=== PATIENT | female | born 1955 | race Caucasian/White ===

== ENCOUNTER 2019-04-05 12:49 | Inpatient (IN) | payer MEDICARE, MEDICAID ==
[~2019-04-05] VITALS: Ht 157.5 cm; Wt 90.7 kg
[2019-04-05 13:21] LABS: BASOPHILS % (AUTO) 0 % (0-1); EOSINOPHILS % (AUTO) 0 % (0-6); HEMATOCRIT 40.2 % (35.0-45.0); HEMOGLOBIN 13.6 g/dl (12.0-16.0); LYMPHOCYTES # (AUTO) 0.5 X10'3 (1.1-4.8); LYMPHOCYTES % (AUTO) 1.9 % (21-51); MEAN CORPUSCULAR HEMOGLOBIN 29.6 PG (27.0-31.0); MEAN CORPUSCULAR HGB CONC 33.9 g/dL (33.0-36.5); MEAN CORPUSCULAR VOLUME 87.2 FL (78-98); MEAN PLATELET VOLUME 7.9 FL (7.4-10.4); MONOCYTES # (AUTO) 0.5 X10'3 (0-0.9); MONOCYTES % (AUTO) 2.2 % (2-12); NEUTROPHILS # (AUTO) 24.1 X10'3 (1.8-7.7); NEUTROPHILS % (AUTO) 95.9 % (42-75); PLATELET COUNT 297 X10'3 (140-440); RED CELL DISTRIBUTION WIDTH 14.3 % (11.5-14.5)
[2019-04-05 13:29] LABS: WHITE BLOOD COUNT 25.1 X10'3 (4.5-11.0)
[2019-04-05 13:37] LABS: ALANINE AMINOTRANSFERASE 28 U/L (12-78); ALBUMIN 3.1 G/DL (3.4-5.0); ALBUMIN/GLOBULIN RATIO 0.7 (1.1-1.5); ALKALINE PHOSPHATASE 99 IU/L (46-116); ANION GAP 9 (8-16); ASPARTATE AMINO TRANSFERASE 38 U/L (10-37); BILIRUBIN,TOTAL 0.9 MG/DL (0.1-1.0); BLOOD UREA NITROGEN 22 MG/DL (7-18); BUN/CREATININE RATIO 17.2 (6.6-38.0); CALCIUM 8.3 MG/DL (8.5-10.1); CHLORIDE 96 MMOL/L (99-107); CREATININE 1.28 MG/DL (0.40-0.90); GLUCOSE 92 MG/DL (70-104); POTASSIUM 3.4 MMOL/L (3.5-5.1); SODIUM 132 MMOL/L (135-145); TOTAL PROTEIN 7.7 G/DL (6.4-8.2); eGFR 42 ML/MIN
[2019-04-05] MEDS ORDERED: vancomycin/NS 1 GM ADD-VANTAGE 250 ML IV ONE (13:45)
[2019-04-05] MEDS ORDERED: piperacillin/tazo 3.375gm/50ml 50 ML IV ONE (13:45)
[2019-04-05 13:49] LABS: TOTAL CELLS COUNTED 100
[2019-04-05 13:50] LABS: ANISOCYTOSIS 1+; PLATELET ESTIMATE NORMAL
[2019-04-05] MEDS: normal saline 1000ml 1,000 ML IV SCH (15:41)
[2019-04-05] MEDS ORDERED: ondansetron/PF 4mg/2ml inj IV PRN (15:45)
[2019-04-05] MEDS ORDERED: mag hydrox/Alum hydrox/simeth 30ml oral suspension PO PRN (15:45)
[2019-04-05] MEDS ORDERED: magnesium hydroxide 30ml (MOM) UD suspension PO PRN (15:45)
[2019-04-05] MEDS ORDERED: morphine 2 MG/ML inj. syringe IV PRN (15:45)
[2019-04-05] MEDS ORDERED: acetaminophen 325mg tablet PO PRN (15:45)
--- NOTE | 2019-04-05 17:30 | NUR ---
Patient in room PCU 3015. I have received report from ER Nurse and had the opportunity to ask questions and assume patient care. Patient transferred to room, IV fluids set up per order with NS running at 100ml/hr, MRSA swab collected, telemetry set up, Wick in place, vital signs stable, no acute distress, will continue to monitor.
--- NOTE | 2019-04-05 18:34 | NUR ---
Problems reprioritized. Patient report given, questions answered & plan of care reviewed with Catia DHALIWAL. Patient stable at transfer of care.
[2019-04-05 19:00] VITALS: BP 152/40
[2019-04-05] MEDS ORDERED: nicotine 7mg patch - 24hr TD SCH (20:00)
[2019-04-05] MEDS: heparin, porcine 5000 units/ml vial SQ SCH (21:10)
[2019-04-05] MEDS: lactobacillus rhamnosus 10,000 MMU CELLS/CAPSULE PO SCH (21:10)
[2019-04-05] MEDS: nicotine 14mg patch - 24hr TD SCH (21:11)
[2019-04-05 23:00] VITALS: BP 130/67
[2019-04-06] MEDS: piperacillin/tazo 3.375gm/50ml 50 ML IV SCH ×4 (00:52→23:30)
[2019-04-06 03:00] VITALS: BP 120/54
[2019-04-06 05:51] LABS: BASOPHILS % (AUTO) 0.1 % (0-1); EOSINOPHILS % (AUTO) 0.1 % (0-6); HEMATOCRIT 35.9 % (35.0-45.0); HEMOGLOBIN 12.1 g/dl (12.0-16.0); LYMPHOCYTES # (AUTO) 0.7 X10'3 (1.1-4.8); LYMPHOCYTES % (AUTO) 3.1 % (21-51); MEAN CORPUSCULAR HGB CONC 33.8 g/dL (33.0-36.5); MEAN CORPUSCULAR VOLUME 85.7 FL (78-98); MEAN PLATELET VOLUME 8.4 FL (7.4-10.4); MONOCYTES # (AUTO) 0.6 X10'3 (0-0.9); MONOCYTES % (AUTO) 2.8 % (2-12); NEUTROPHILS # (AUTO) 20.6 X10'3 (1.8-7.7); NEUTROPHILS % (AUTO) 93.9 % (42-75); PLATELET COUNT 239 X10'3 (140-440); RED BLOOD COUNT 4.19 X10'6 (4.20-5.60); RED CELL DISTRIBUTION WIDTH 14.2 % (11.5-14.5)
[2019-04-06 06:00] VITALS: BP 109/61
[2019-04-06 06:22] LABS: ALBUMIN 2.5 G/DL (3.4-5.0); ANION GAP 11 (8-16); BLOOD UREA NITROGEN 16 MG/DL (7-18); BUN/CREATININE RATIO 16.2 (6.6-38.0); CHLORIDE 99 MMOL/L (99-107); CREATININE 0.99 MG/DL (0.40-0.90); GLUCOSE 92 MG/DL (70-104); POTASSIUM 3.1 MMOL/L (3.5-5.1); SODIUM 134 MMOL/L (135-145); TOTAL CARBON DIOXIDE 23.7 MMOL/L (24-32); eGFR 57 ML/MIN
--- NOTE | 2019-04-06 06:30 | NUR ---
Patient in room PCU 3015. I have received report from MADHURI DIAZ and had the opportunity to ask questions and assume patient care.
[2019-04-06 07:01] LABS: TOTAL CELLS COUNTED 100
[2019-04-06 07:02] LABS: PLATELET ESTIMATE NORMAL
[2019-04-06] MEDS: normal saline 1000ml 1,000 ML IV SCH ×2 (07:22→12:42)
[2019-04-06] MEDS: lactobacillus rhamnosus 10,000 MMU CELLS/CAPSULE PO SCH ×2 (07:37→20:27)
[2019-04-06] MEDS: heparin, porcine 5000 units/ml vial SQ SCH ×2 (07:38→20:27)
[2019-04-06] MEDS: nicotine 14mg patch - 24hr TD SCH (07:38)
--- NOTE | 2019-04-06 09:16 | NUR ---
PAGED VASCULAR:[id number], US ORDERS SKYLER [phone]. TY
--- NOTE | 2019-04-06 09:30 | NUR ---
informed dr. shaw k+ 3.1 without replacement. stool sent for dciif, re loose stools.
--- NOTE | 2019-04-06 10:42 | NUR ---
PAGER ID: [phone] MESSAGE: , [id number]/MAYO, HARD IV START.ONE PIV STARTED BY ED MD IN. HAVE IV ZOSYN Q 8 HOURS AND VANCO IV Q 12 HOURS. CANNOT ADM ORDERED UNTIL WE GET ANOTHER LINE. WILL NEED PICC OR EXTENDED TOMORROW, SKYLER [id number]. TY
[2019-04-06 10:55] LABS: C DIFF ANTIGEN NEGATIVE (NEGATIVE); C DIFF SPECIMEN=DIARRHEA? ACCEPTABLE; C DIFFICILE TOXINS A&B NEGATIVE (Neg)
[2019-04-06 11:00] VITALS: BP 115/54
[2019-04-06] MEDS: VANCOmycin 1250MG/NS 250ml Bag 250 ML IV SCH ×2 (12:41→20:26)
[2019-04-06] MEDS ORDERED: potassium CL 10mEq/100ml bag 100 ML IV PRN (13:40)
[2019-04-06] MEDS ORDERED: potassium Cl 20 mEq SR tablet PO PRN (13:40)
[2019-04-06] MEDS: potassium Cl 20 mEq SR tablet PO PRN ×3 (13:50→23:30)
[2019-04-06] MEDS ORDERED: VANCOmycin 1250MG/NS 250ml Bag 250 ML IV SCH (14:00)
--- NOTE | 2019-04-06 14:39 | NUR ---
c-dif was negative. requested anti-diarrheal medication from Dr. Miner. no order at this time.
[2019-04-06 15:00] VITALS: BP 101/47
--- NOTE | 2019-04-06 16:44 | NUR ---
Latoya CARRASCO, PHARMACIST, REQUESTING HELP TO INPUT HOME MEDS INTO MED REC. HAD ASKED MADHURI SLAUGHTER FOR ASSIST. UNSURE HOW TO DO IT. LUNA STATES "I WILL HAVE TO FIND THE INSTRUCTIONS AND FAX THEM TO YOU"
--- NOTE | 2019-04-06 18:39 | NUR ---
Problems reprioritized. Patient report given, questions answered & plan of care reviewed with MADHURI DIAZ.
[2019-04-06 19:00] VITALS: BP 114/72
[2019-04-06 23:00] VITALS: BP 119/63
[2019-04-06] MEDS ORDERED: ATEN-169 PO (23:48)
[2019-04-06] MEDS ORDERED: CLOP75TA35 PO (23:52)
[2019-04-07] MEDS ORDERED: CELE-193 PO (00:46)
[2019-04-07] MEDS ORDERED: TOLT2TAB2 PO (00:50)
[2019-04-07] MEDS ORDERED: NORT25CA PO (00:56)
[2019-04-07] MEDS ORDERED: VENL-190 PO (00:56)
[2019-04-07] MEDS ORDERED: FURO-150 PO (00:56)
[2019-04-07] MEDS ORDERED: LISI-600 PO (00:57)
[2019-04-07 03:00] VITALS: BP 144/67
--- NOTE | 2019-04-07 06:30 | NUR ---
Patient in room PCU 3015. I have received report from MADHURI DIAZ and had the opportunity to ask questions and assume patient care.
[2019-04-07 06:54] LABS: BASOPHILS % (AUTO) 0 % (0-1); EOSINOPHILS # (AUTO) 0.6 X10'3 (0-0.9); EOSINOPHILS % (AUTO) 3.4 % (0-6); HEMATOCRIT 34.8 % (35.0-45.0); HEMOGLOBIN 11.7 g/dl (12.0-16.0); LYMPHOCYTES # (AUTO) 0.6 X10'3 (1.1-4.8); LYMPHOCYTES % (AUTO) 3.4 % (21-51); MEAN CORPUSCULAR HEMOGLOBIN 29.4 PG (27.0-31.0); MEAN CORPUSCULAR HGB CONC 33.6 g/dL (33.0-36.5); MEAN CORPUSCULAR VOLUME 87.4 FL (78-98); MEAN PLATELET VOLUME 8.5 FL (7.4-10.4); MONOCYTES # (AUTO) 0.7 X10'3 (0-0.9); MONOCYTES % (AUTO) 3.7 % (2-12); NEUTROPHILS % (AUTO) 89.5 % (42-75); PLATELET COUNT 218 X10'3 (140-440); RED BLOOD COUNT 3.98 X10'6 (4.20-5.60); RED CELL DISTRIBUTION WIDTH 14.6 % (11.5-14.5); WHITE BLOOD COUNT 17.8 X10'3 (4.5-11.0)
[2019-04-07 07:00] VITALS: BP 117/69
[2019-04-07 07:17] LABS: ALBUMIN 2.2 G/DL (3.4-5.0); ANION GAP 13 (8-16); BLOOD UREA NITROGEN 11 MG/DL (7-18); BUN/CREATININE RATIO 14.9 (6.6-38.0); CALCIUM 8.6 MG/DL (8.5-10.1); CHLORIDE 103 MMOL/L (99-107); CREATININE 0.74 MG/DL (0.40-0.90); GLUCOSE 105 MG/DL (70-104); SODIUM 135 MMOL/L (135-145); TOTAL CARBON DIOXIDE 18.9 MMOL/L (24-32); eGFR 79 ML/MIN
[2019-04-07 07:22] LABS: POTASSIUM 4.4 MMOL/L (3.5-5.1)
[2019-04-07] MEDS: normal saline 1000ml 1,000 ML IV SCH ×3 (07:33→13:50)
[2019-04-07] MEDS: nicotine 14mg patch - 24hr TD SCH (08:06)
[2019-04-07] MEDS: lactobacillus rhamnosus 10,000 MMU CELLS/CAPSULE PO SCH ×2 (08:07→19:26)
[2019-04-07] MEDS: VANCOmycin 1250MG/NS 250ml Bag 250 ML IV SCH (08:07)
[2019-04-07] MEDS: piperacillin/tazo 3.375gm/50ml 50 ML IV SCH (08:07)
[2019-04-07] MEDS: heparin, porcine 5000 units/ml vial SQ SCH ×2 (08:08→19:28)
--- NOTE | 2019-04-07 08:54 | NUR ---
PAGED PICC RN:PLEASE CALL SKYLER [phone]. TY
--- NOTE | 2019-04-07 08:56 | NUR ---
FRAN INFRASTRUCTURE MANAGER: R/T 1895E, PLEASE CALL SKYLER [id number]. TY Addendum: 04/07/19 at 0857 by Jagdeep Aponte RN WRONG PT
[2019-04-07 08:57] LABS: TOTAL CELLS COUNTED 100
[2019-04-07 08:58] LABS: PLATELET ESTIMATE NORMAL; TOXIC GRANULATION 1+; TOXIC VACUOLATION 2+
[2019-04-07 08:59] LABS: LARGE PLATELETS FEW
--- NOTE | 2019-04-07 09:35 | NUR ---
SECOND PAGE TO PICC RN:PLEASE CALL SKYLER [id number] R/R [id number]. TY
[2019-04-07 11:00] VITALS: BP 105/69
--- NOTE | 2019-04-07 13:45 | NUR ---
UP SITTING ON EDGE OF BED, PULLING GOWN OFF. PULLED OUT PIV LAC 3 16 AND RIGHT BREAST #22. HEMOSTASIS ACHIEVED. HAVE REMAINING EXTENDED PIV BAY. SITTER ASSIGNED.
[2019-04-07] MEDS: ceFAZolin 1GM/D5W- ADD-VANTAGE 50 ML IV SCH ×2 (13:50→19:37)
[2019-04-07 15:00] VITALS: BP 129/50
--- NOTE | 2019-04-07 15:15 | NUR ---
Extended PIV inserted to the right upper arm cephalic vein x 1 attempt using ultrasound. Anna well Addendum: 04/07/19 at 1515 by Chelita Rivas RN Amended: Links added.
[2019-04-07] MEDS: HYDROcodone/acetaminophen 10/325mg tab PO PRN (15:45)
--- NOTE | 2019-04-07 18:12 | NUR ---
Problems reprioritized. Patient report given, questions answered & plan of care reviewed with deanna polanco.
--- NOTE | 2019-04-07 18:39 | NUR ---
Patient in room PCU 3015. I have received report from Azar DHALIWAL and had the opportunity to ask questions and assume patient care.
[2019-04-07 19:00] VITALS: BP 140/69
[2019-04-07] MEDS ORDERED: VANCOMYCIN LEVEL IV ONE (19:30)
[2019-04-07] MEDS: nortriptyline 25mg capsule PO SCH (21:05)
[2019-04-07 23:00] VITALS: BP 136/78
[2019-04-08] VITALS (8 sets, daily range): BP systolic 87–144; BP diastolic 47–75
[2019-04-08] MEDS: ceFAZolin 1GM/D5W- ADD-VANTAGE 50 ML IV SCH ×4 (02:01→21:03)
[2019-04-08] MEDS: normal saline 1000ml 1,000 ML IV SCH ×3 (03:41→23:05)
[2019-04-08] MEDS: HYDROcodone/acetaminophen 10/325mg tab PO PRN ×2 (04:22→17:32)
[2019-04-08 04:48] LABS: BASOPHILS % (AUTO) 0 % (0-1); EOSINOPHILS # (AUTO) 0.8 X10'3 (0-0.9); EOSINOPHILS % (AUTO) 6.3 % (0-6); HEMATOCRIT 33.7 % (35.0-45.0); HEMOGLOBIN 11.4 g/dl (12.0-16.0); LYMPHOCYTES # (AUTO) 0.5 X10'3 (1.1-4.8); LYMPHOCYTES % (AUTO) 4.2 % (21-51); MEAN CORPUSCULAR HEMOGLOBIN 29.3 PG (27.0-31.0); MEAN CORPUSCULAR HGB CONC 33.8 g/dL (33.0-36.5); MEAN CORPUSCULAR VOLUME 86.6 FL (78-98); MEAN PLATELET VOLUME 7.9 FL (7.4-10.4); MONOCYTES # (AUTO) 0.8 X10'3 (0-0.9); MONOCYTES % (AUTO) 6.2 % (2-12); NEUTROPHILS # (AUTO) 10.5 X10'3 (1.8-7.7); NEUTROPHILS % (AUTO) 83.3 % (42-75); PLATELET COUNT 265 X10'3 (140-440); RED BLOOD COUNT 3.89 X10'6 (4.20-5.60); RED CELL DISTRIBUTION WIDTH 14.6 % (11.5-14.5); WHITE BLOOD COUNT 12.7 X10'3 (4.5-11.0)
[2019-04-08 04:59] LABS: ALBUMIN 1.9 G/DL (3.4-5.0); ANION GAP 9 (8-16); BLOOD UREA NITROGEN 8 MG/DL (7-18); BUN/CREATININE RATIO 11.8 (6.6-38.0); CALCIUM 8.5 MG/DL (8.5-10.1); CHLORIDE 104 MMOL/L (99-107); CREATININE 0.68 MG/DL (0.40-0.90); GLUCOSE 111 MG/DL (70-104); POTASSIUM 3.1 MMOL/L (3.5-5.1); SODIUM 135 MMOL/L (135-145); TOTAL CARBON DIOXIDE 22.5 MMOL/L (24-32); eGFR 87 ML/MIN
--- NOTE | 2019-04-08 06:15 | NUR ---
Problems reprioritized. Patient report given, questions answered & plan of care reviewed with Azar RN.
--- NOTE | 2019-04-08 06:25 | NUR ---
Patient in room PCU 3015. I have received report from MADHURI MURPHY and had the opportunity to ask questions and assume patient care.
[2019-04-08] MEDS: celeCOXIB 100mg capsule PO SCH (07:45)
[2019-04-08] MEDS: lactobacillus rhamnosus 10,000 MMU CELLS/CAPSULE PO SCH ×2 (07:46→21:03)
[2019-04-08] MEDS: tolterodine 2mg SR capsule (24hr) PO SCH (07:47)
[2019-04-08] MEDS: venlafaxine XR 75mg capsule (Q24H) PO SCH (07:47)
[2019-04-08] MEDS: clopidogrel 75mg tablet PO SCH (07:48)
[2019-04-08] MEDS: atenolol 25mg tablet PO SCH (07:49)
[2019-04-08] MEDS: heparin, porcine 5000 units/ml vial SQ SCH ×2 (07:51→21:03)
[2019-04-08] MEDS: lisinopril 5mg tablet PO SCH (07:51)
[2019-04-08] MEDS: nicotine 14mg patch - 24hr TD SCH (07:52)
[2019-04-08] MEDS: potassium Cl 20 mEq SR tablet PO PRN ×3 (07:53→17:30)
--- NOTE | 2019-04-08 10:53 | NUR ---
PAGER ID: [phone] MESSAGE: DR. CALVO, 8873A/MAYO. C/O ITCHING ALL OVER. BACK IS RED, NOT RAISED, NO HIVES. IS SCRATCHING SELF. ANCEF WAS STARTED YESTERDAY BY DR. CABRAL. SKYLER [id number]. TY
--- NOTE | 2019-04-08 11:32 | NUR ---
PAGER ID: [phone] MESSAGE: DR. CALVO, BENADRYL NOT AVAILABLE PO IN 12.5 MG. ONLY AVAILABLE IV PEDIATRIC DOSE IV. CAN I PLEASE HAVE ORDER FOR BENADRYL 25 MG PO Q 6 HOURS PRN? SKYLER [id number]. TY
--- NOTE | 2019-04-08 11:43 | NUR ---
PAGER ID: [phone] MESSAGE: DR. CALVO, 9190Z/MAYO, MAN BP 94/62. SKYLER [id number].TY
[2019-04-08] MEDS: diphenhydrAMINE 25mg capsule PO PRN ×2 (11:56→21:04)
--- NOTE | 2019-04-08 18:13 | NUR ---
Problems reprioritized. Patient report given, questions answered & plan of care reviewed with deanna rowland.
[2019-04-08] MEDS: nortriptyline 25mg capsule PO SCH (21:03)
[2019-04-09] MEDS: ceFAZolin 1GM/D5W- ADD-VANTAGE 50 ML IV SCH ×4 (02:22→20:19)
[2019-04-09 05:49] LABS: BASOPHILS # (AUTO) 0.1 X10'3 (0-0.2); BASOPHILS % (AUTO) 0.4 % (0-1); EOSINOPHILS # (AUTO) 0.9 X10'3 (0-0.9); EOSINOPHILS % (AUTO) 7.2 % (0-6); HEMATOCRIT 33.5 % (35.0-45.0); LYMPHOCYTES # (AUTO) 0.8 X10'3 (1.1-4.8); LYMPHOCYTES % (AUTO) 6.6 % (21-51); MEAN CORPUSCULAR HEMOGLOBIN 28.8 PG (27.0-31.0); MEAN CORPUSCULAR VOLUME 87.3 FL (78-98); MEAN PLATELET VOLUME 8.1 FL (7.4-10.4); MONOCYTES % (AUTO) 8.7 % (2-12); NEUTROPHILS # (AUTO) 9.3 X10'3 (1.8-7.7); NEUTROPHILS % (AUTO) 77.1 % (42-75); PLATELET COUNT 284 X10'3 (140-440); RED BLOOD COUNT 3.83 X10'6 (4.20-5.60)
[2019-04-09 05:50] LABS: ALBUMIN 1.9 G/DL (3.4-5.0); ANION GAP 10 (8-16); BLOOD UREA NITROGEN 10 MG/DL (7-18); BUN/CREATININE RATIO 14.7 (6.6-38.0); CALCIUM 8.6 MG/DL (8.5-10.1); CHLORIDE 109 MMOL/L (99-107); CREATININE 0.68 MG/DL (0.40-0.90); GLUCOSE 91 MG/DL (70-104); SODIUM 141 MMOL/L (135-145); TOTAL CARBON DIOXIDE 22.4 MMOL/L (24-32); eGFR 87 ML/MIN
--- NOTE | 2019-04-09 06:15 | NUR ---
Patient in room PCU 3015. I have received report from Adriane DHALIWAL and had the opportunity to ask questions and assume patient care.
--- NOTE | 2019-04-09 06:29 | NUR ---
Problems reprioritized. Patient report given, questions answered & plan of care reviewed with MADHURI Crews.
[2019-04-09 06:51] VITALS: BP 121/76
[2019-04-09 07:37] LABS: PLATELET ESTIMATE NORMAL; TOTAL CELLS COUNTED 100
[2019-04-09] MEDS: tolterodine 2mg SR capsule (24hr) PO SCH (07:44)
[2019-04-09] MEDS: clopidogrel 75mg tablet PO SCH (07:44)
[2019-04-09] MEDS: venlafaxine XR 75mg capsule (Q24H) PO SCH (07:44)
[2019-04-09] MEDS: celeCOXIB 100mg capsule PO SCH (07:45)
[2019-04-09] MEDS: atenolol 25mg tablet PO SCH (07:45)
[2019-04-09] MEDS: nicotine 14mg patch - 24hr TD SCH (07:46)
[2019-04-09] MEDS: heparin, porcine 5000 units/ml vial SQ SCH ×2 (07:46→20:19)
[2019-04-09] MEDS: lisinopril 5mg tablet PO SCH (07:49)
[2019-04-09] MEDS: lactobacillus rhamnosus 10,000 MMU CELLS/CAPSULE PO SCH ×2 (07:49→20:19)
[2019-04-09] MEDS: normal saline 1000ml 1,000 ML IV SCH ×2 (09:13→20:18)
[2019-04-09 11:00] VITALS: BP 132/57
--- NOTE | 2019-04-09 11:23 | NUR ---
Initial: Pt admit with sepsis secondary to right leg cellulitis and leukocytosis improving per MD notes. Pt currently on a heart healthy diet with fluctuating PO intake overall 75-100% likely meeting nutrient needs. Pt documented as A/o x1 and confused, unable to provide protein education at this time. [facility] 04/07. Will continue to follow and monitor need for ONS. Recommendations: 1) Continue with regular diet 2) Monitor need for ONS 3) Routine bowel care 4) Wt per rx Addendum: 04/09/19 at [address] Amended: Links added.
[2019-04-09 15:00] VITALS: BP 112/57
--- NOTE | 2019-04-09 18:21 | NUR ---
Problems reprioritized. Patient report given, questions answered & plan of care reviewed with Cyndie DHALIWAL.
[2019-04-09 19:00] VITALS: BP 145/66
[2019-04-09] MEDS: nortriptyline 25mg capsule PO SCH (20:19)
[2019-04-09 23:00] VITALS: BP 154/82
[2019-04-10] MEDS: ceFAZolin 1GM/D5W- ADD-VANTAGE 50 ML IV SCH ×2 (02:06→07:59)
--- NOTE | 2019-04-10 02:38 | NUR ---
PAGER ID: [phone] MESSAGE: pt Shabbir Orozco, 9825N, dx with R cellulitis, bp 183/90 with manual BP, has NS 100ml/hr. Can she have anything for her BP, no BP PRN med on EMAR
[2019-04-10] MEDS: HYDROcodone/acetaminophen 10/325mg tab PO PRN (02:44)
[2019-04-10 03:00] VITALS: BP 193/84
[2019-04-10 03:45] VITALS: BP 150/86
--- NOTE | 2019-04-10 04:06 | NUR ---
pt Bp was 183/90, with manual check, contact Dr. Morfin, he gave an order to stop IV fluid, BP got back down to 150/86
[2019-04-10 06:00] VITALS: BP 147/82
--- NOTE | 2019-04-10 06:19 | NUR ---
Patient in room PCU 3015. I have received report from Cyndie DHALIWAL and had the opportunity to ask questions and assume patient care.
--- NOTE | 2019-04-10 06:20 | NUR ---
Problems reprioritized. Patient report given, questions answered & plan of care reviewed with Kristen DHALIWAL.
--- NOTE | 2019-04-10 06:40 | NUR ---
Patient in room PCU 3015. I have received report from Dory DHALIWAL and had the opportunity to ask questions and assume patient care.
[2019-04-10 06:44] LABS: BASOPHILS # (AUTO) 0.1 X10'3 (0-0.2); BASOPHILS % (AUTO) 0.8 % (0-1); EOSINOPHILS # (AUTO) 0.8 X10'3 (0-0.9); EOSINOPHILS % (AUTO) 5.8 % (0-6); HEMATOCRIT 31.8 % (35.0-45.0); HEMOGLOBIN 10.7 g/dl (12.0-16.0); LYMPHOCYTES # (AUTO) 1.2 X10'3 (1.1-4.8); LYMPHOCYTES % (AUTO) 8.7 % (21-51); MEAN CORPUSCULAR HEMOGLOBIN 29.1 PG (27.0-31.0); MEAN CORPUSCULAR HGB CONC 33.5 g/dL (33.0-36.5); MEAN CORPUSCULAR VOLUME 87.1 FL (78-98); MEAN PLATELET VOLUME 8.1 FL (7.4-10.4); MONOCYTES # (AUTO) 1.2 X10'3 (0-0.9); MONOCYTES % (AUTO) 8.8 % (2-12); NEUTROPHILS # (AUTO) 10.1 X10'3 (1.8-7.7); NEUTROPHILS % (AUTO) 75.9 % (42-75); PLATELET COUNT 325 X10'3 (140-440); RED BLOOD COUNT 3.66 X10'6 (4.20-5.60); RED CELL DISTRIBUTION WIDTH 14.8 % (11.5-14.5); WHITE BLOOD COUNT 13.3 X10'3 (4.5-11.0)
[2019-04-10 06:56] LABS: ALBUMIN 1.8 G/DL (3.4-5.0); ANION GAP 9 (8-16); BLOOD UREA NITROGEN 6 MG/DL (7-18); CALCIUM 8.6 MG/DL (8.5-10.1); CHLORIDE 108 MMOL/L (99-107); GLUCOSE 99 MG/DL (70-104); POTASSIUM 3.8 MMOL/L (3.5-5.1); SODIUM 140 MMOL/L (135-145); eGFR > 90 ML/MIN
[2019-04-10 07:43] LABS: PLATELET ESTIMATE NORMAL; TOTAL CELLS COUNTED 100
[2019-04-10] MEDS: lactobacillus rhamnosus 10,000 MMU CELLS/CAPSULE PO SCH (07:57)
[2019-04-10] MEDS: clopidogrel 75mg tablet PO SCH (07:57)
[2019-04-10] MEDS: celeCOXIB 100mg capsule PO SCH (07:58)
[2019-04-10] MEDS: atenolol 25mg tablet PO SCH (07:58)
[2019-04-10] MEDS: venlafaxine XR 75mg capsule (Q24H) PO SCH (07:58)
[2019-04-10] MEDS: lisinopril 5mg tablet PO SCH (07:58)
[2019-04-10] MEDS: tolterodine 2mg SR capsule (24hr) PO SCH (07:58)
[2019-04-10] MEDS: heparin, porcine 5000 units/ml vial SQ SCH (07:59)
[2019-04-10] MEDS: nicotine 14mg patch - 24hr TD SCH (08:03)
[2019-04-10] MEDS ORDERED: CEPH500C5 PO (10:14)
--- NOTE | 2019-04-10 14:22 | NUR ---
VSS, Pt is stable for discharge per md orders, d/c instructions reviewed with patient and questions answered, new medication delivered to bedside by [facility], iv dc'ed and clean dry dressing applied, tele 44 removed and returned, pt discharged @ 1340 to home by [place] [facility], pt was wheeled down with 2 staff members, all belongings with patient and given clothes to go home d/t pt clothing soiled.
== END 2019-04-10 13:45 | disposition home health service (06) | DRG 871 ==
LOC: ER 12:49 → PCU 3S 18:10 → CMPBEDREQ 04-07 20:59
PROVIDERS: ADMIT Family Medicine; ATTEND Family Medicine
DX: A41.9 Sepsis, unspecified organism (principal); N17.0 Acute kidney failure with tubular necrosis; E87.1 Hypo-osmolality and hyponatremia; L03.116 Cellulitis of left lower limb; L03.115 Cellulitis of right lower limb; I89.0 Lymphedema, not elsewhere classified; E11.9 Type 2 diabetes mellitus without complications; B19.20 Unspecified viral hepatitis C without hepatic coma; F32.9 Major depressive disorder, single episode, unspecified; I87.2 Venous insufficiency (chronic) (peripheral); F41.9 Anxiety disorder, unspecified; W18.39XA Other fall on same level, initial encounter; G89.29 Other chronic pain; E87.6 Hypokalemia; F17.210 Nicotine dependence, cigarettes, uncomplicated; G40.909 Epilepsy, unspecified, not intractable, without status epilepticus; I10 Essential (primary) hypertension; J44.9 Chronic obstructive pulmonary disease, unspecified; Z59.0 Homelessness; Z79.02 Long term (current) use of antithrombotics/antiplatelets; Z86.718 Personal history of other venous thrombosis and embolism; Y93.89 Activity, other specified; Y92.89 Other specified places as the place of occurrence of the external cause; Y99.8 Other external cause status
CPT/HCPCS: 36415; 70450; 71045; 73700; 80048; 80053; 83605; 84132; 84145; 85025; 87040; 87081; 87324; 87449; 93971; 96365; 96367; 97110; 97116; 97162; 97530; 99285; G0378; J0690; J1644; J2543; J3370; J7030; Q0163

== ENCOUNTER 2019-05-06 13:20 | Inpatient (IN) | payer MEDICARE, MEDICAID ==
[~2019-05-06] VITALS: Ht 157.5 cm; Wt 90.0 kg
[~2019-05-06 13:20] MED LIST: ATEN-169 PO; CELE-193 PO; CLOP75TA35 PO; FURO-150 PO; LISI-600 PO; NORT25CA PO; TOLT2TAB2 PO; VENL-190 PO
[2019-05-06 14:20] LABS: BASOPHILS # (AUTO) 0.1 X10'3 (0-0.2); BASOPHILS % (AUTO) 0.6 % (0-1); EOSINOPHILS % (AUTO) 0.1 % (0-6); HEMATOCRIT 36.5 % (35.0-45.0); HEMOGLOBIN 11.8 g/dl (12.0-16.0); LYMPHOCYTES # (AUTO) 1.6 X10'3 (1.1-4.8); LYMPHOCYTES % (AUTO) 7.2 % (21-51); MEAN CORPUSCULAR HEMOGLOBIN 27.8 PG (27.0-31.0); MEAN CORPUSCULAR HGB CONC 32.4 g/dL (33.0-36.5); MEAN PLATELET VOLUME 7.6 FL (7.4-10.4); MONOCYTES # (AUTO) 0.8 X10'3 (0-0.9); MONOCYTES % (AUTO) 3.5 % (2-12); NEUTROPHILS % (AUTO) 88.6 % (42-75); PLATELET COUNT 365 X10'3 (140-440); RED BLOOD COUNT 4.24 X10'6 (4.20-5.60); RED CELL DISTRIBUTION WIDTH 14.8 % (11.5-14.5); WHITE BLOOD COUNT 21.5 X10'3 (4.5-11.0)
--- NOTE | 2019-05-06 14:24 | NUR ---
vascular manager at bedside.
[2019-05-06 14:38] LABS: PARTIAL THROMBOPLASTIN TIME 33 SECONDS (22-32)
[2019-05-06] MEDS ORDERED: piperacillin/tazo 3.375gm/50ml 50 ML IV ONE (14:55)
[2019-05-06 15:24] LABS: ALANINE AMINOTRANSFERASE 14 U/L (12-78); ALBUMIN 2.8 G/DL (3.4-5.0); ALBUMIN/GLOBULIN RATIO 0.6 (1.1-1.5); ALKALINE PHOSPHATASE 85 IU/L (46-116); ANION GAP 8 (8-16); ASPARTATE AMINO TRANSFERASE 13 U/L (10-37); BILIRUBIN,TOTAL 0.8 MG/DL (0.1-1.0); BLOOD UREA NITROGEN 10 MG/DL (7-18); BUN/CREATININE RATIO 10.3 (6.6-38.0); CALCIUM 8.3 MG/DL (8.5-10.1); CHLORIDE 104 MMOL/L (99-107); CREATININE 0.97 MG/DL (0.40-0.90); GLUCOSE 109 MG/DL (70-104); POTASSIUM 3.3 MMOL/L (3.5-5.1); SODIUM 139 MMOL/L (135-145); TOTAL CARBON DIOXIDE 26.6 MMOL/L (24-32); TOTAL PROTEIN 7.3 G/DL (6.4-8.2); eGFR 58 ML/MIN
--- NOTE | 2019-05-06 15:30 | NUR ---
clariified with dr cortez regarding pt diet can she eat or not ? as per pt can eat .snack given to pt.
[2019-05-06 15:32] LABS: CLARITY,URINE CLEAR (Clear); COLOR,URINE YELLOW (Yellow); GLUCOSE, URINE NEGATIVE (Neg); KETONES,URINE NEGATIVE (Neg); LEUKOCYTE ESTERASE ,URINE NEGATIVE (Neg); NITRITES, URINE NEGATIVE (Neg); OCCULT BLOOD,URINE NEGATIVE (Neg); PH,URINE 6.5 (4.8-8.0); PROTEIN,URINE TRACE mg/dl (Neg); UA COLLECTION TYPE STRAIGHT CATH
[2019-05-06 15:39] LABS: MUCUS STRANDS MODERATE /LPF (Neg); SQUAMOUS EPITHELIAL CELL,UR MANY /LPF (FEW)
[2019-05-06 15:41] LABS: BACTERIA,URINE FEW /HPF (Neg)
[2019-05-06 15:42] LABS: RBC,URINE 0-2 /HPF (0-2); WBC,URINE 0-4 /HPF (0-4)
[2019-05-06] MEDS ORDERED: acetaminophen 325mg tablet PO PRN (15:50)
[2019-05-06] MEDS ORDERED: morphine 2 MG/ML inj. syringe IV PRN ×2 (15:50)
[2019-05-06] MEDS ORDERED: ondansetron/PF 4mg/2ml inj IV PRN (15:50)
[2019-05-06] MEDS ORDERED: magnesium hydroxide 30ml (MOM) UD suspension PO PRN (15:50)
[2019-05-06] MEDS ORDERED: HYDROcodone/acetaminophen 5mg/325mg tablet PO PRN (15:50)
[2019-05-06] MEDS ORDERED: mag hydrox/Alum hydrox/simeth 30ml oral suspension PO PRN (15:50)
[2019-05-06] MEDS ORDERED: HYDROcodone/acetaminophen 10/325mg tab PO PRN (15:50)
[2019-05-06] MEDS: ceFAZolin 1GM/D5W- ADD-VANTAGE 50 ML IV SCH (16:14)
[2019-05-06] MEDS ORDERED: CELE-85 PO (16:40)
[2019-05-06] MEDS ORDERED: NORT25CA PO (16:40)
[2019-05-06] MEDS ORDERED: LISI-604 PO (16:40)
[2019-05-06] MEDS ORDERED: VENL150C2 PO (16:40)
[2019-05-06] MEDS ORDERED: ATEN25TA PO (16:40)
[2019-05-06] MEDS ORDERED: TOLT4CAP PO (16:40)
[2019-05-06] MEDS ORDERED: FURO40TA4 PO (16:40)
[2019-05-06] MEDS ORDERED: CLOP75TA33 PO (16:40)
[2019-05-06] MEDS: normal saline 1000ml 1,000 ML IV SCH (18:09)
--- NOTE | 2019-05-06 18:47 | NUR ---
PT TRYING TO GET UP OUT OF BED SO THAT SHE CAN GO OUTSIDE AND SMOKE. INFORMED HER THAT WAS NOT ALLOWED. WILL NOTIFY HOSPITALIST FOR NICOTINE PATCH.
[2019-05-06] MEDS ORDERED: nicotine 14mg patch - 24hr TD ONE (19:10)
--- NOTE | 2019-05-06 19:31 | NUR ---
pt up to eat her dinner.
[2019-05-06] MEDS: docusate sod 100mg capsule PO SCH (22:18)
[2019-05-06] MEDS: nortriptyline 25mg capsule PO SCH (22:18)
[2019-05-07] VITALS: BP 143/72
[2019-05-07] MEDS: normal saline 1000ml 1,000 ML IV SCH ×3 (01:46→21:16)
[2019-05-07] MEDS: ceFAZolin 1GM/D5W- ADD-VANTAGE 50 ML IV SCH ×3 (02:34→15:05)
[2019-05-07] MEDS ORDERED: magnesium Cl slow-release 64mg tablet PO PRN (05:15)
[2019-05-07] MEDS ORDERED: potassium CL 10mEq/100ml bag 100 ML IV PRN ×2 (05:15→09:50)
[2019-05-07] MEDS ORDERED: potassium Cl 20 mEq SR tablet PO PRN ×3 (05:15→09:50)
[2019-05-07] MEDS ORDERED: magnesium 4gm in 100ml NS 100 ML IV PRN (05:15)
[2019-05-07 05:19] LABS: BASOPHILS # (AUTO) 0.1 X10'3 (0-0.2); BASOPHILS % (AUTO) 0.4 % (0-1); EOSINOPHILS # (AUTO) 0.7 X10'3 (0-0.9); EOSINOPHILS % (AUTO) 4.9 % (0-6); HEMATOCRIT 33.8 % (35.0-45.0); HEMOGLOBIN 11.5 g/dl (12.0-16.0); LYMPHOCYTES # (AUTO) 0.9 X10'3 (1.1-4.8); MEAN CORPUSCULAR HEMOGLOBIN 29.1 PG (27.0-31.0); MEAN CORPUSCULAR VOLUME 85.5 FL (78-98); MEAN PLATELET VOLUME 7.7 FL (7.4-10.4); MONOCYTES # (AUTO) 0.4 X10'3 (0-0.9); MONOCYTES % (AUTO) 2.8 % (2-12); NEUTROPHILS # (AUTO) 12.3 X10'3 (1.8-7.7); NEUTROPHILS % (AUTO) 85.9 % (42-75); PLATELET COUNT 301 X10'3 (140-440); RED BLOOD COUNT 3.95 X10'6 (4.20-5.60); RED CELL DISTRIBUTION WIDTH 14.7 % (11.5-14.5); WHITE BLOOD COUNT 14.4 X10'3 (4.5-11.0)
[2019-05-07 05:36] LABS: ALBUMIN 2.4 G/DL (3.4-5.0); ANION GAP 10 (8-16); BLOOD UREA NITROGEN 10 MG/DL (7-18); BUN/CREATININE RATIO 11.1 (6.6-38.0); CHLORIDE 103 MMOL/L (99-107); GLUCOSE 113 MG/DL (70-104); POTASSIUM 3.1 MMOL/L (3.5-5.1); SODIUM 136 MMOL/L (135-145); TOTAL CARBON DIOXIDE 23.3 MMOL/L (24-32); eGFR 63 ML/MIN
--- NOTE | 2019-05-07 06:36 | NUR ---
Problems reprioritized. Patient report given, questions answered & plan of care reviewed with Maria De Jesus RN.
--- NOTE | 2019-05-07 06:39 | NUR ---
Patient in room MONO 349. I have received report from MADHURI PATEL and had the opportunity to ask questions and assume patient care.
[2019-05-07] MEDS: furosemide 40mg tablet PO SCH (07:31)
[2019-05-07] MEDS: venlafaxine XR 75mg capsule (Q24H) PO SCH (07:32)
[2019-05-07] MEDS: clopidogrel 75mg tablet PO SCH (07:32)
[2019-05-07] MEDS: docusate sod 100mg capsule PO SCH ×2 (07:32→20:10)
[2019-05-07] MEDS: celeCOXIB 100mg capsule PO SCH (07:32)
[2019-05-07] MEDS: lisinopril 5mg tablet PO SCH (07:32)
[2019-05-07] MEDS: oxybutynin 5mg tablet PO SCH ×3 (07:32→20:10)
[2019-05-07 08:00] VITALS: BP_SYST 103; BP_SYST 127; BP_DIAS 49; BP_DIAS 70
[2019-05-07] MEDS: atenolol 25mg tablet PO SCH (08:00)
[2019-05-07] MEDS: enoxaparin 40mg/0.4ml syringe SUBCUT SCH (08:00)
--- NOTE | 2019-05-07 09:07 | NUR ---
Held patient's atenolol due to lower blood pressure-per Dr. Reilly. aware.
[2019-05-07] MEDS: potassium Cl 20 mEq SR tablet PO PRN ×3 (09:58→21:15)
[2019-05-07 12:00] VITALS: BP 127/70
[2019-05-07 18:00] VITALS: BP 121/70
--- NOTE | 2019-05-07 18:28 | NUR ---
Problems reprioritized. Patient report given, questions answered & plan of care reviewed with MADHURI Artis.
--- NOTE | 2019-05-07 18:56 | NUR ---
Patient in room MONO 349. I have received report from Maria De Jesus DHALIWAL and had the opportunity to ask questions and assume patient care.
[2019-05-07] MEDS: nortriptyline 25mg capsule PO SCH (20:10)
[2019-05-08] VITALS: BP 128/70
[2019-05-08] MEDS: ceFAZolin 1GM/D5W- ADD-VANTAGE 50 ML IV SCH ×3 (00:09→16:41)
[2019-05-08] MEDS: normal saline 1000ml 1,000 ML IV SCH ×2 (03:24→13:40)
[2019-05-08 05:32] LABS: ALBUMIN 2.2 G/DL (3.4-5.0); ANION GAP 7 (8-16); BLOOD UREA NITROGEN 10 MG/DL (7-18); BUN/CREATININE RATIO 13.7 (6.6-38.0); CALCIUM 8.1 MG/DL (8.5-10.1); CHLORIDE 109 MMOL/L (99-107); CREATININE 0.73 MG/DL (0.40-0.90); GLUCOSE 94 MG/DL (70-104); POTASSIUM 3.8 MMOL/L (3.5-5.1); SODIUM 142 MMOL/L (135-145); TOTAL CARBON DIOXIDE 25.7 MMOL/L (24-32); eGFR 81 ML/MIN
[2019-05-08 05:41] LABS: BASOPHILS % (AUTO) 0.2 % (0-1); EOSINOPHILS # (AUTO) 0.9 X10'3 (0-0.9); EOSINOPHILS % (AUTO) 11.2 % (0-6); HEMATOCRIT 30.7 % (35.0-45.0); HEMOGLOBIN 10.2 g/dl (12.0-16.0); LYMPHOCYTES # (AUTO) 1.1 X10'3 (1.1-4.8); LYMPHOCYTES % (AUTO) 13.9 % (21-51); MEAN CORPUSCULAR HEMOGLOBIN 28.8 PG (27.0-31.0); MEAN CORPUSCULAR HGB CONC 33.3 g/dL (33.0-36.5); MEAN CORPUSCULAR VOLUME 86.6 FL (78-98); MEAN PLATELET VOLUME 7.9 FL (7.4-10.4); MONOCYTES # (AUTO) 0.5 X10'3 (0-0.9); MONOCYTES % (AUTO) 5.7 % (2-12); NEUTROPHILS # (AUTO) 5.7 X10'3 (1.8-7.7); PLATELET COUNT 261 X10'3 (140-440); RED BLOOD COUNT 3.55 X10'6 (4.20-5.60); RED CELL DISTRIBUTION WIDTH 14.6 % (11.5-14.5); WHITE BLOOD COUNT 8.3 X10'3 (4.5-11.0)
--- NOTE | 2019-05-08 06:24 | NUR ---
Problems reprioritized. Patient report given, questions answered & plan of care reviewed with Daria DHALIWAL.
--- NOTE | 2019-05-08 06:44 | NUR ---
Patient in room MONO 349. I have received report from MADHURI Artis and had the opportunity to ask questions and assume patient care.
[2019-05-08 07:19] VITALS: BP 152/92
[2019-05-08] MEDS: enoxaparin 40mg/0.4ml syringe SUBCUT SCH (08:07)
[2019-05-08] MEDS: celeCOXIB 100mg capsule PO SCH (08:08)
[2019-05-08] MEDS: furosemide 40mg tablet PO SCH (08:08)
[2019-05-08] MEDS: venlafaxine XR 75mg capsule (Q24H) PO SCH (08:08)
[2019-05-08] MEDS: lisinopril 5mg tablet PO SCH (08:08)
[2019-05-08] MEDS: atenolol 25mg tablet PO SCH (08:08)
[2019-05-08] MEDS: clopidogrel 75mg tablet PO SCH (08:08)
[2019-05-08] MEDS: oxybutynin 5mg tablet PO SCH ×3 (08:08→22:09)
[2019-05-08] MEDS: docusate sod 100mg capsule PO SCH ×2 (08:08→22:09)
[2019-05-08 11:00] VITALS: BP 124/65
[2019-05-08] MEDS: nicotine 14mg patch - 24hr TD SCH (17:36)
--- NOTE | 2019-05-08 18:35 | NUR ---
Problems reprioritized. Patient report given, questions answered & plan of care reviewed with MADHURI Tran and remberto Singletary RN.
--- NOTE | 2019-05-08 18:35 | NUR ---
Patient in room MONO 349. I have received report from Daria DHALIWAL and had the opportunity to ask questions and assume patient care. Patient finishing dinner, will continue to monitor.
[2019-05-08 19:00] VITALS: BP 136/79
[2019-05-08] MEDS: nortriptyline 25mg capsule PO SCH (22:08)
[2019-05-08] MEDS: lactobacillus rhamnosus 10,000 MMU CELLS/CAPSULE PO SCH (22:09)
[2019-05-09] VITALS: BP 123/60
[2019-05-09] MEDS: ceFAZolin 1GM/D5W- ADD-VANTAGE 50 ML IV SCH ×2 (00:05→07:11)
[2019-05-09] MEDS: normal saline 1000ml 1,000 ML IV SCH ×2 (00:06→02:10)
[2019-05-09 05:36] LABS: BASOPHILS % (AUTO) 0.3 % (0-1); EOSINOPHILS # (AUTO) 0.9 X10'3 (0-0.9); EOSINOPHILS % (AUTO) 11.5 % (0-6); HEMATOCRIT 31.8 % (35.0-45.0); HEMOGLOBIN 10.7 g/dl (12.0-16.0); LYMPHOCYTES # (AUTO) 1.4 X10'3 (1.1-4.8); LYMPHOCYTES % (AUTO) 19.1 % (21-51); MEAN CORPUSCULAR HEMOGLOBIN 28.9 PG (27.0-31.0); MEAN CORPUSCULAR HGB CONC 33.7 g/dL (33.0-36.5); MEAN CORPUSCULAR VOLUME 85.8 FL (78-98); MEAN PLATELET VOLUME 7.6 FL (7.4-10.4); MONOCYTES # (AUTO) 0.6 X10'3 (0-0.9); MONOCYTES % (AUTO) 7.6 % (2-12); NEUTROPHILS # (AUTO) 4.6 X10'3 (1.8-7.7); NEUTROPHILS % (AUTO) 61.5 % (42-75); PLATELET COUNT 302 X10'3 (140-440); RED BLOOD COUNT 3.71 X10'6 (4.20-5.60); RED CELL DISTRIBUTION WIDTH 14.8 % (11.5-14.5); WHITE BLOOD COUNT 7.5 X10'3 (4.5-11.0)
[2019-05-09 05:51] LABS: ALBUMIN 2.5 G/DL (3.4-5.0); ANION GAP 11 (8-16); BLOOD UREA NITROGEN 11 MG/DL (7-18); BUN/CREATININE RATIO 15.5 (6.6-38.0); CALCIUM 8.5 MG/DL (8.5-10.1); CHLORIDE 108 MMOL/L (99-107); CREATININE 0.71 MG/DL (0.40-0.90); GLUCOSE 85 MG/DL (70-104); POTASSIUM 3.6 MMOL/L (3.5-5.1); SODIUM 143 MMOL/L (135-145); TOTAL CARBON DIOXIDE 24.2 MMOL/L (24-32); eGFR 83 ML/MIN
--- NOTE | 2019-05-09 06:31 | NUR ---
Patient in room MONO 358. I have received report from MADHURI Tran and remberto Singletary RN and had the opportunity to ask questions and assume patient care.
[2019-05-09] MEDS: clopidogrel 75mg tablet PO SCH (07:11)
[2019-05-09] MEDS: lisinopril 5mg tablet PO SCH (07:11)
[2019-05-09] MEDS: docusate sod 100mg capsule PO SCH (07:11)
[2019-05-09] MEDS: venlafaxine XR 75mg capsule (Q24H) PO SCH (07:11)
[2019-05-09] MEDS: celeCOXIB 100mg capsule PO SCH (07:11)
[2019-05-09] MEDS: lactobacillus rhamnosus 10,000 MMU CELLS/CAPSULE PO SCH (07:11)
[2019-05-09] MEDS: atenolol 25mg tablet PO SCH (07:11)
[2019-05-09] MEDS: oxybutynin 5mg tablet PO SCH (07:11)
[2019-05-09] MEDS: furosemide 40mg tablet PO SCH (07:11)
[2019-05-09] MEDS: nicotine 14mg patch - 24hr TD SCH (07:12)
[2019-05-09] MEDS: enoxaparin 40mg/0.4ml syringe SUBCUT SCH (07:12)
[2019-05-09 07:30] VITALS: BP 157/72
[2019-05-09] MEDS ORDERED: CEPH250T PO (09:25)
--- NOTE | 2019-05-09 09:35 | NUR ---
pt up to bathroom without assistance, IV found pulled out in pt bed.
--- NOTE | 2019-05-09 11:22 | NUR ---
Primary RN spoke with [facility] worker, Scarlet, who states that pt's caregiver does not provide rides to client and she is responsible for figuring out her own transportation.
--- NOTE | 2019-05-09 12:11 | NUR ---
Pt discharged per nursing. All discharge instructions and medications reviewed. Pt pulled own IV prior to discharge. Pt instructed to follow up with PCP in 1-2 weeks, and to return to ED if signs of infection return. Ride home with cab via [employer] pending. New prescription delivered to the bedside by [facility].
== END 2019-05-09 13:08 | disposition home or self-care (01) | DRG 872 ==
LOC: ER 13:21 → SUR 3N 20:27 → CMPBEDREQ 20:45 → SUR 3N 05-09 03:40
PROVIDERS: ADMIT Internal Medicine; ATTEND Internal Medicine
DX: A41.9 Sepsis, unspecified organism (principal); L03.115 Cellulitis of right lower limb; N17.9 Acute kidney failure, unspecified; E11.9 Type 2 diabetes mellitus without complications; F17.200 Nicotine dependence, unspecified, uncomplicated; I10 Essential (primary) hypertension; J44.9 Chronic obstructive pulmonary disease, unspecified; B19.20 Unspecified viral hepatitis C without hepatic coma; D64.9 Anemia, unspecified; F32.9 Major depressive disorder, single episode, unspecified; F41.9 Anxiety disorder, unspecified; G47.00 Insomnia, unspecified; G89.29 Other chronic pain; Z87.820 Personal history of traumatic brain injury; Z79.02 Long term (current) use of antithrombotics/antiplatelets; Z79.899 Other long term (current) drug therapy; Z56.0 Unemployment, unspecified
CPT/HCPCS: 36415; 80048; 80053; 81001; 82948; 83605; 84145; 85025; 85610; 85730; 87040; 87081; 93971; 96365; 97116; 97161; 97530; 99285; G0378; J0690; J1650; J2543; J7030

== ENCOUNTER 2019-07-29 12:49 | Inpatient (IN) | payer MEDICARE, MEDICAID ==
[~2019-07-29] VITALS: Ht 157.5 cm; Wt 96.0 kg
[~2019-07-29 12:49] MED LIST changes: -ATEN-169 PO; +ATEN25TA PO; -CELE-193 PO; +CELE-85 PO; +CEPH250T PO; +CLOP75TA33 PO; -CLOP75TA35 PO; -FURO-150 PO; +FURO40TA4 PO; -LISI-600 PO; +LISI-604 PO; -TOLT2TAB2 PO; +TOLT4CAP PO; -VENL-190 PO; +VENL150C2 PO
[2019-07-29] MEDS ORDERED: normal saline 1000ML IV soln IV ONE (13:15)
[2019-07-29] MEDS ORDERED: vancomycin/NS 1 GM ADD-VANTAGE 250 ML IV ONE (13:15)
[2019-07-29] MEDS ORDERED: CefTRIAXone 2gm/D5W 50ml 50 ML IV ONE (13:15)
--- NOTE | 2019-07-29 14:15 | NUR ---
picc line nurse here, stated i will be back in an hour, have to do a picc line in icu. i stated, ok we can wait a hour
--- NOTE | 2019-07-29 14:21 | NUR ---
IV X2 UNSUCCESSFUL
--- NOTE | 2019-07-29 15:53 | NUR ---
sherin [facility] nurse spoke with picc line nurse and states, i will be there in 2 minutes.
--- NOTE | 2019-07-29 15:59 | NUR ---
PICC LINE NURSE AT BEDSIDE.
--- NOTE | 2019-07-29 16:00 | NUR ---
DELAY IN STARTING ANTIBOTICS DUE TO UNABLE TO GET IV LINE
--- NOTE | 2019-07-29 16:15 | NUR ---
picc line nurse started iv right ac
[2019-07-29 16:30] LABS: BASOPHILS % (AUTO) 0 % (0-1); EOSINOPHILS % (AUTO) 0.1 % (0-6); HEMATOCRIT 37.6 % (35.0-45.0); HEMOGLOBIN 12.6 g/dl (12.0-16.0); LYMPHOCYTES # (AUTO) 1.3 X10'3 (1.1-4.8); LYMPHOCYTES % (AUTO) 4.1 % (21-51); MEAN CORPUSCULAR HEMOGLOBIN 27.8 PG (27.0-31.0); MEAN CORPUSCULAR HGB CONC 33.6 g/dL (33.0-36.5); MEAN CORPUSCULAR VOLUME 82.8 FL (78-98); MEAN PLATELET VOLUME 7.4 FL (7.4-10.4); MONOCYTES # (AUTO) 0.6 X10'3 (0-0.9); MONOCYTES % (AUTO) 1.7 % (2-12); NEUTROPHILS # (AUTO) 30.4 X10'3 (1.8-7.7); NEUTROPHILS % (AUTO) 94.1 % (42-75); PLATELET COUNT 397 X10'3 (140-440); RED BLOOD COUNT 4.54 X10'6 (4.20-5.60); RED CELL DISTRIBUTION WIDTH 14.8 % (11.5-14.5)
[2019-07-29 16:36] LABS: WHITE BLOOD COUNT 32.3 X10'3 (4.5-11.0)
[2019-07-29 16:40] LABS: PARTIAL THROMBOPLASTIN TIME 34 SECONDS (22-32)
--- NOTE | 2019-07-29 16:40 | NUR ---
SPOKE WITH AAYUSH BERGER REGARDING WBC=32.3 DR PALAFOX TRANSFERED CARE TO AAYUSH BERGER
[2019-07-29 16:49] LABS: ALANINE AMINOTRANSFERASE 15 U/L (12-78); ALBUMIN 3.2 G/DL (3.4-5.0); ALBUMIN/GLOBULIN RATIO 0.6 (1.1-1.5); ALKALINE PHOSPHATASE 97 IU/L (46-116); ANION GAP 10 (8-16); ASPARTATE AMINO TRANSFERASE 20 U/L (10-37); BILIRUBIN,TOTAL 0.7 MG/DL (0.1-1.0); BLOOD UREA NITROGEN 13 MG/DL (7-18); BUN/CREATININE RATIO 13.3 (6.6-38.0); CALCIUM 8.7 MG/DL (8.5-10.1); CHLORIDE 98 MMOL/L (99-107); CREATININE 0.98 MG/DL (0.40-0.90); GLUCOSE 92 MG/DL (70-104); MAGNESIUM 1.8 MG/DL (1.5-2.4); POTASSIUM 3.1 MMOL/L (3.5-5.1); SODIUM 135 MMOL/L (135-145); TOTAL CARBON DIOXIDE 26.8 MMOL/L (24-32); TOTAL PROTEIN 8.4 G/DL (6.4-8.2); eGFR 57 ML/MIN
[2019-07-29 17:21] LABS: TOTAL CELLS COUNTED 100
[2019-07-29 17:22] LABS: PLATELET ESTIMATE NORMAL; TOXIC GRANULATION 1+
[2019-07-29 17:23] LABS: TOXIC VACUOLATION FEW
[2019-07-29] MEDS ORDERED: magnesium hydroxide 30ml (MOM) UD suspension PO PRN (17:40)
[2019-07-29] MEDS ORDERED: morphine 2 MG/ML inj. syringe IV PRN (17:40)
[2019-07-29] MEDS ORDERED: potassium Cl 20 mEq SR tablet PO PRN (17:40)
[2019-07-29] MEDS ORDERED: potassium CL 10mEq/100ml bag 100 ML IV PRN ×2 (17:40)
[2019-07-29] MEDS ORDERED: magnesium 2GM in 50ml NS 50 ML IV PRN (17:40)
[2019-07-29] MEDS ORDERED: ondansetron/PF 4mg/2ml inj IV PRN (17:40)
[2019-07-29] MEDS ORDERED: acetaminophen 325mg tablet PO PRN ×2 (17:40)
[2019-07-29] MEDS ORDERED: magnesium 4gm in 100ml NS 100 ML IV PRN (17:40)
[2019-07-29] MEDS ORDERED: magnesium Cl slow-release 64mg tablet PO PRN (17:40)
[2019-07-29] MEDS ORDERED: normal saline 1000ml 1,000 ML IV ONE (17:40)
[2019-07-29] MEDS ORDERED: mag hydrox/Alum hydrox/simeth 30ml oral suspension PO PRN (17:40)
[2019-07-29] MEDS ORDERED: HYDROcodone/acetaminophen 5mg/325mg tablet PO PRN (17:40)
--- NOTE | 2019-07-29 17:50 | NUR ---
spoke with rani moncada re: pts resp status. states, hold 2 liter bolus of ns and applied 02 for comfort
--- NOTE | 2019-07-29 17:53 | NUR ---
pt more alert answers questions appropriately
[2019-07-29 19:40] VITALS: BP 123/81
[2019-07-29] MEDS ORDERED: VANCOmycin 1250MG/NS 250ml Bag 250 ML IV SCH (20:00)
[2019-07-29] MEDS: nortriptyline 25mg capsule PO SCH (20:16)
[2019-07-29] MEDS: lactobacillus rhamnosus 10,000 MMU CELLS/CAPSULE PO SCH (20:16)
--- NOTE | 2019-07-29 22:38 | NUR ---
Pt continuously c/o having to urinate. Thrashes legs around as if she appears to be uncomfortable. Bladder scanned with a reading of 160mL. Attempted to manipulate catheter to facilitate drainage. Deyanira BARON, received an order to hand irrigate. Hand irrigation unsuccessful, removed FC. Pt on bedpan attempting to urinate at this time. Will replace if attempt unsuccessful.
[2019-07-29] MEDS: morphine 2 MG/ML inj. syringe IV PRN (22:48)
[2019-07-29 23:58] VITALS: BP 121/57
--- NOTE | 2019-07-30 01:56 | NUR ---
Notified MD that new FC had been placed since hand irrigation did not produce additional urine. Since that time, approx. 2 hours, patient has produced a total of 10mL of urine. Fluids running at 100 mL/hr, lung sounds clear, continues to state she feels the urge to void, bladder scan reads 140mL. states to pass info onto daytime RN who can notify oncoming hospitalist to consult with urology.
[2019-07-30 05:57] LABS: BASOPHILS % (AUTO) 0.2 % (0-1); EOSINOPHILS # (AUTO) 0.1 X10'3 (0-0.9); EOSINOPHILS % (AUTO) 0.3 % (0-6); HEMATOCRIT 36.1 % (35.0-45.0); LYMPHOCYTES # (AUTO) 1.3 X10'3 (1.1-4.8); MEAN CORPUSCULAR HEMOGLOBIN 27.9 PG (27.0-31.0); MEAN CORPUSCULAR HGB CONC 33.2 g/dL (33.0-36.5); MEAN CORPUSCULAR VOLUME 84.1 FL (78-98); MONOCYTES # (AUTO) 0.9 X10'3 (0-0.9); NEUTROPHILS # (AUTO) 19.7 X10'3 (1.8-7.7); NEUTROPHILS % (AUTO) 89.5 % (42-75); PLATELET COUNT 320 X10'3 (140-440); RED CELL DISTRIBUTION WIDTH 15.1 % (11.5-14.5); WHITE BLOOD COUNT 22.1 X10'3 (4.5-11.0)
[2019-07-30 06:03] LABS: ALBUMIN 2.6 G/DL (3.4-5.0); ANION GAP 9 (8-16); BLOOD UREA NITROGEN 14 MG/DL (7-18); BUN/CREATININE RATIO 13.7 (6.6-38.0); CALCIUM 8.3 MG/DL (8.5-10.1); CHLORIDE 102 MMOL/L (99-107); CREATININE 1.02 MG/DL (0.40-0.90); GLUCOSE 80 MG/DL (70-104); MAGNESIUM 1.9 MG/DL (1.5-2.4); POTASSIUM 3.2 MMOL/L (3.5-5.1); SODIUM 138 MMOL/L (135-145); TOTAL CARBON DIOXIDE 26.6 MMOL/L (24-32); eGFR 55 ML/MIN
--- NOTE | 2019-07-30 06:41 | NUR ---
Problems reprioritized. Patient report given, questions answered & plan of care reviewed with MADHURI Mora.
--- NOTE | 2019-07-30 06:51 | NUR ---
Patient in room MONO 359. I have received report from MADHURI Mccollum and had the opportunity to ask questions and assume patient care. Patient currently resting in bed, bed locked and low, seizure pads in place, call light in reach, NS@100ml/hr, SPO2 91% on RA, bed alarm on. No acute distress, will continue to monitor.
[2019-07-30 07:00] VITALS: BP 124/67
[2019-07-30] MEDS: K and/or MAG REPLACEMENT MC SCH (08:00)
[2019-07-30] MEDS ORDERED: FLU VACC QS2019-20 36MOS UP/PF 60 MCG/0.5 ML SYRINGE IMVAC ONE (08:15)
[2019-07-30] MEDS: CefTRIAXone 2gm/D5W 50ml 50 ML IV SCH (08:21)
[2019-07-30] MEDS: lactobacillus rhamnosus 10,000 MMU CELLS/CAPSULE PO SCH ×2 (08:22→20:19)
[2019-07-30] MEDS: tolterodine 2mg SR capsule (24hr) PO SCH (08:23)
[2019-07-30] MEDS: atenolol 25mg tablet PO SCH (08:24)
[2019-07-30] MEDS: lisinopril 5mg tablet PO SCH (08:25)
[2019-07-30] MEDS: furosemide 40mg tablet PO SCH (08:26)
[2019-07-30] MEDS: venlafaxine XR 75mg capsule (Q24H) PO SCH (08:26)
[2019-07-30] MEDS: potassium Cl 20 mEq SR tablet PO PRN ×3 (08:26→22:08)
[2019-07-30] MEDS: clopidogrel 75mg tablet PO SCH (08:27)
[2019-07-30] MEDS: enoxaparin 40mg/0.4ml syringe SQ SCH (08:28)
--- NOTE | 2019-07-30 08:45 | NUR ---
Provided patient with incentive spirometer and flutter valve. Provided teaching on how to use devices and opportunity to ask questions. Patient stated and demonstrated understanding on how to use both devices. Addendum: 07/30/19 at 0944 by Lynn ENNIS Amended: Links added.
--- NOTE | 2019-07-30 09:19 | NUR ---
PAGER ID: [phone] MESSAGE: MADHURI Mora, ext [phone], [phone], [place], patient keeps asking to go outside and smoke, she said she would like a nicotine patch.
[2019-07-30] MEDS: VANCOmycin 1250MG/NS 250ml Bag 250 ML IV SCH ×2 (09:26→20:20)
[2019-07-30 09:53] LABS: CLARITY,URINE CLOUDY (Clear); COLOR,URINE YELLOW (Yellow); GLUCOSE, URINE NEGATIVE (Neg); KETONES,URINE NEGATIVE (Neg); LEUKOCYTE ESTERASE ,URINE TRACE (Neg); NITRITES, URINE NEGATIVE (Neg); OCCULT BLOOD,URINE LARGE (Neg); PROTEIN,URINE 30 mg/dl (Neg); UROBILINOGEN,URINE 0.2 E.U/dL (0.2-1.0)
[2019-07-30 09:54] LABS: UA COLLECTION TYPE FOLEY CATH
[2019-07-30 10:01] LABS: HYALINE CASTS 0-3 /LPF (NEGATIVE); MUCUS STRANDS FEW /LPF (Neg); RBC,URINE TNTC /HPF (0-2); SQUAMOUS EPITHELIAL CELL,UR FEW /LPF (FEW)
[2019-07-30 10:02] LABS: BACTERIA,URINE 1+ /HPF (Neg); WBC,URINE 20-30 /HPF (0-4)
[2019-07-30] MEDS ORDERED: furosemide 40mg/4ml inj IV ONE (14:00)
--- NOTE | 2019-07-30 14:06 | NUR ---
PAGER ID: [phone] MESSAGE: MADHURI Mora, ext [phone], [phone], [place], caregiver refused to have lunch blood glucose checked, says pt is not diabetic, A1C was 6.4, blood sugars have been WNL so far
[2019-07-30 17:11] VITALS: BP 97/70
[2019-07-30] MEDS: nicotine 14mg patch - 24hr TD SCH (17:21)
[2019-07-30 17:51] LABS: C DIFF ANTIGEN NEGATIVE (NEGATIVE); C DIFF SPECIMEN=DIARRHEA? ACCEPTABLE; C DIFFICILE TOXINS A&B NEGATIVE (Neg)
--- NOTE | 2019-07-30 17:59 | NUR ---
Student Medication Administration: For this medication-pass time frame, all medication were reviewed, dispensed, administered and documented per hospital policy by Eulalio Student Nurse.
--- NOTE | 2019-07-30 18:23 | NUR ---
Problems reprioritized. Patient report given, questions answered & plan of care reviewed with Veda Davidson RN.
--- NOTE | 2019-07-30 18:24 | NUR ---
Patient in room MONO 359. I have received report from MADHURI Mora and had the opportunity to ask questions and assume patient care. Addendum: 07/30/19 at 1824 by Yuliya Arrington RN Amended: Links added.
[2019-07-30 20:00] VITALS: BP 115/73
[2019-07-30] MEDS: nortriptyline 25mg capsule PO SCH (20:19)
[2019-07-30] MEDS: morphine 2 MG/ML inj. syringe IV PRN (20:24)
[2019-07-31] VITALS: BP 134/70
--- NOTE | 2019-07-31 06:50 | NUR ---
Patient in room MONO 359. I have received report from MADHURI Chang and had the opportunity to ask questions and assume patient care.
--- NOTE | 2019-07-31 06:52 | NUR ---
Patient in room MONO 359. I have received report from Veda Narayanan RN and had the opportunity to ask questions and assume patient care.
--- NOTE | 2019-07-31 06:53 | NUR ---
Problems reprioritized. Patient report given, questions answered & plan of care reviewed with MADHURI TOM.
[2019-07-31 07:00] VITALS: BP 95/68
[2019-07-31] MEDS ORDERED: VANCOMYCIN LEVEL IV ONE (07:30)
[2019-07-31] MEDS: furosemide 40mg tablet PO SCH (08:00)
[2019-07-31] MEDS: K and/or MAG REPLACEMENT MC SCH (08:00)
[2019-07-31] MEDS: atenolol 25mg tablet PO SCH (08:00)
[2019-07-31] MEDS: lisinopril 5mg tablet PO SCH (08:00)
[2019-07-31] MEDS: nicotine 14mg patch - 24hr TD SCH (09:06)
[2019-07-31] MEDS: enoxaparin 40mg/0.4ml syringe SQ SCH (09:10)
[2019-07-31] MEDS: venlafaxine XR 75mg capsule (Q24H) PO SCH (09:10)
[2019-07-31] MEDS: CefTRIAXone 2gm/D5W 50ml 50 ML IV SCH (09:10)
[2019-07-31] MEDS: lactobacillus rhamnosus 10,000 MMU CELLS/CAPSULE PO SCH ×2 (09:11→21:24)
[2019-07-31] MEDS: clopidogrel 75mg tablet PO SCH (09:11)
--- NOTE | 2019-07-31 09:21 | NUR ---
I called the lab to confirm if the Vanco level at 0730am today is done, the tech I spoke to said not yet and will let the phlebothomist know
[2019-07-31 09:24] LABS: BASOPHILS % (AUTO) 0 % (0-1); EOSINOPHILS # (AUTO) 0.4 X10'3 (0-0.9); EOSINOPHILS % (AUTO) 2.7 % (0-6); HEMATOCRIT 33.2 % (35.0-45.0); LYMPHOCYTES # (AUTO) 1.1 X10'3 (1.1-4.8); LYMPHOCYTES % (AUTO) 7.9 % (21-51); MEAN CORPUSCULAR HEMOGLOBIN 27.8 PG (27.0-31.0); MEAN CORPUSCULAR HGB CONC 33.1 g/dL (33.0-36.5); MEAN CORPUSCULAR VOLUME 83.9 FL (78-98); MEAN PLATELET VOLUME 7.9 FL (7.4-10.4); MONOCYTES # (AUTO) 0.9 X10'3 (0-0.9); MONOCYTES % (AUTO) 6.1 % (2-12); NEUTROPHILS # (AUTO) 11.9 X10'3 (1.8-7.7); NEUTROPHILS % (AUTO) 83.3 % (42-75); PLATELET COUNT 284 X10'3 (140-440); RED BLOOD COUNT 3.95 X10'6 (4.20-5.60); WHITE BLOOD COUNT 14.2 X10'3 (4.5-11.0)
[2019-07-31 09:34] LABS: ALBUMIN 2.3 G/DL (3.4-5.0); ANION GAP 5 (8-16); BLOOD UREA NITROGEN 11 MG/DL (7-18); BUN/CREATININE RATIO 14.9 (6.6-38.0); CALCIUM 8.5 MG/DL (8.5-10.1); CHLORIDE 104 MMOL/L (99-107); CREATININE 0.74 MG/DL (0.40-0.90); GLUCOSE 112 MG/DL (70-104); MAGNESIUM 1.9 MG/DL (1.5-2.4); POTASSIUM 3.5 MMOL/L (3.5-5.1); SODIUM 136 MMOL/L (135-145); TOTAL CARBON DIOXIDE 26.9 MMOL/L (24-32); eGFR 79 ML/MIN
[2019-07-31] MEDS: VANCOmycin 1250MG/NS 250ml Bag 250 ML IV SCH ×2 (10:12→21:25)
--- NOTE | 2019-07-31 10:50 | NUR ---
Dr. Castillo notified about holding BP meds this am due to low BP 95/68.
[2019-07-31 11:00] VITALS: BP 106/56
[2019-07-31] MEDS: tolterodine 2mg SR capsule (24hr) PO SCH (11:16)
[2019-07-31 15:00] VITALS: BP 113/65
--- NOTE | 2019-07-31 16:25 | NUR ---
student services coordinator reported to me that patient's berkowitz catheter was found out. I went to the room, I saw patient's berkowitz catheter was completely out, balloon still inflated. There were no bleeding noted. When I asked the patient if she pulled it out, she did not respond to my question. Bladder scanned the patient, only 12 ml showed. Charge nurse Dory ruiz. Dr. Castillo notified via paging system.
--- NOTE | 2019-07-31 17:03 | NUR ---
Dr. aCstillo called back said "No berkowitz!"
--- NOTE | 2019-07-31 17:55 | NUR ---
Student documentation: I have reviewed all interventions, assessments performed and documented by Louann MARTINES
[2019-07-31 18:00] VITALS: BP 126/72
--- NOTE | 2019-07-31 18:30 | NUR ---
Problems reprioritized. Patient report given, questions answered & plan of care reviewed with Veda Narayanan RN.
--- NOTE | 2019-07-31 18:41 | NUR ---
Patient in room MONO 359. I have received report from MADHURI PIERSON and had the opportunity to ask questions and assume patient care. Addendum: 07/31/19 at 1842 by Yuliya Arrington RN Amended: Links added.
[2019-07-31] MEDS: nortriptyline 25mg capsule PO SCH (21:24)
[2019-08-01] VITALS: BP 116/65
--- NOTE | 2019-08-01 06:27 | NUR ---
Problems reprioritized. Patient report given, questions answered & plan of care reviewed with MADHURI Hannah.
--- NOTE | 2019-08-01 06:37 | NUR ---
Patient in room MONO 359. I have received report from Veda Narayanan RN and had the opportunity to ask questions and assume patient care.
[2019-08-01 07:00] VITALS: BP 127/71
[2019-08-01] MEDS: CefTRIAXone 2gm/D5W 50ml 50 ML IV SCH (07:15)
[2019-08-01] MEDS: atenolol 25mg tablet PO SCH (07:16)
[2019-08-01] MEDS: nicotine 14mg patch - 24hr TD SCH (07:16)
[2019-08-01] MEDS: enoxaparin 40mg/0.4ml syringe SQ SCH (07:16)
[2019-08-01] MEDS: lisinopril 5mg tablet PO SCH (07:17)
[2019-08-01] MEDS: lactobacillus rhamnosus 10,000 MMU CELLS/CAPSULE PO SCH (07:17)
[2019-08-01] MEDS: clopidogrel 75mg tablet PO SCH (07:17)
[2019-08-01] MEDS: venlafaxine XR 75mg capsule (Q24H) PO SCH (07:17)
[2019-08-01] MEDS: tolterodine 2mg SR capsule (24hr) PO SCH (07:18)
[2019-08-01 07:51] LABS: BASOPHILS % (AUTO) 0.2 % (0-1); EOSINOPHILS # (AUTO) 0.5 X10'3 (0-0.9); HEMATOCRIT 31.5 % (35.0-45.0); HEMOGLOBIN 10.8 g/dl (12.0-16.0); LYMPHOCYTES # (AUTO) 1.2 X10'3 (1.1-4.8); LYMPHOCYTES % (AUTO) 11.9 % (21-51); MEAN CORPUSCULAR HEMOGLOBIN 28.5 PG (27.0-31.0); MEAN CORPUSCULAR HGB CONC 34.2 g/dL (33.0-36.5); MEAN CORPUSCULAR VOLUME 83.4 FL (78-98); MEAN PLATELET VOLUME 7.5 FL (7.4-10.4); MONOCYTES # (AUTO) 0.9 X10'3 (0-0.9); MONOCYTES % (AUTO) 8.8 % (2-12); NEUTROPHILS # (AUTO) 7.3 X10'3 (1.8-7.7); NEUTROPHILS % (AUTO) 74.1 % (42-75); PLATELET COUNT 312 X10'3 (140-440); RED BLOOD COUNT 3.78 X10'6 (4.20-5.60); RED CELL DISTRIBUTION WIDTH 15.1 % (11.5-14.5); WHITE BLOOD COUNT 9.8 X10'3 (4.5-11.0)
[2019-08-01 08:00] LABS: ALBUMIN 2.2 G/DL (3.4-5.0); ANION GAP 6 (8-16); BLOOD UREA NITROGEN 7 MG/DL (7-18); BUN/CREATININE RATIO 8.9 (6.6-38.0); CALCIUM 8.5 MG/DL (8.5-10.1); CHLORIDE 104 MMOL/L (99-107); CREATININE 0.79 MG/DL (0.40-0.90); GLUCOSE 100 MG/DL (70-104); POTASSIUM 3.3 MMOL/L (3.5-5.1); SODIUM 139 MMOL/L (135-145); eGFR 74 ML/MIN
[2019-08-01] MEDS ORDERED: furosemide 20MG tablet PO SCH (08:00)
[2019-08-01] MEDS: K and/or MAG REPLACEMENT MC SCH (08:00)
[2019-08-01] MEDS: VANCOmycin 1250MG/NS 250ml Bag 250 ML IV SCH (08:37)
[2019-08-01 11:00] VITALS: BP 113/63
--- NOTE | 2019-08-01 14:42 | NUR ---
Report given to Laurie DHALIWAL from [facility]. Expected spanish moss picker time is 15:00. Patient will be leaving with peripheral IV catheters on left and right arms, patient will continue Vancomycin IV at [facility].
--- NOTE | 2019-08-01 15:10 | NUR ---
Patient left the unit with her belongings. [employer] transported patient to [facility]
== END 2019-08-01 15:21 | DRG 871 ==
LOC: ER 12:49 → ED HOLD 17:47 → SUR 3N 19:37
PROVIDERS: ADMIT Hospitalist; ATTEND Internal Medicine
DX: A41.9 Sepsis, unspecified organism (principal); G93.41 Metabolic encephalopathy; L03.115 Cellulitis of right lower limb; L03.116 Cellulitis of left lower limb; R65.20 Severe sepsis without septic shock; I89.0 Lymphedema, not elsewhere classified; G89.4 Chronic pain syndrome; E11.9 Type 2 diabetes mellitus without complications; E66.01 Morbid (severe) obesity due to excess calories; F17.200 Nicotine dependence, unspecified, uncomplicated; I10 Essential (primary) hypertension; J44.9 Chronic obstructive pulmonary disease, unspecified; B19.20 Unspecified viral hepatitis C without hepatic coma; F32.9 Major depressive disorder, single episode, unspecified; F41.9 Anxiety disorder, unspecified; N28.9 Disorder of kidney and ureter, unspecified; Z23 Encounter for immunization; Z79.899 Other long term (current) drug therapy; Z86.718 Personal history of other venous thrombosis and embolism; Z68.38 Body mass index [BMI] 38.0-38.9, adult
CPT/HCPCS: 36415; 71045; 76937; 80048; 80053; 80202; 81001; 82948; 83036; 83605; 83735; 84145; 85025; 85610; 85730; 87040; 87081; 87088; 87324; 87449; 93005; 93970; 96365; 97110; 97112; 97116; 97161; 97530; 97760; 99285; G0378; J0696; J1650; J1940; J2270; J3370; Q2037

== ENCOUNTER 2019-09-24 14:20 | Emergency (ER) | payer MEDICARE, MEDICAID ==
[~2019-09-24] VITALS: Ht 157.5 cm; Wt 95.0 kg
[~2019-09-24 14:20] MED LIST changes: -CELE-85 PO; -CEPH250T PO
[2019-09-24] MEDS ORDERED: normal saline 1000ML IV soln IV ONE (15:15)
[2019-09-24 15:40] LABS: BASOPHILS # (AUTO) 0.1 X10'3 (0-0.2); BASOPHILS % (AUTO) 0.7 % (0-1); EOSINOPHILS # (AUTO) 0.1 X10'3 (0-0.9); EOSINOPHILS % (AUTO) 0.7 % (0-6); HEMATOCRIT 39.6 % (35.0-45.0); HEMOGLOBIN 13.3 g/dl (12.0-16.0); LYMPHOCYTES # (AUTO) 1.3 X10'3 (1.1-4.8); LYMPHOCYTES % (AUTO) 12.3 % (21-51); MEAN CORPUSCULAR HEMOGLOBIN 28.2 PG (27.0-31.0); MEAN CORPUSCULAR HGB CONC 33.7 g/dL (33.0-36.5); MEAN CORPUSCULAR VOLUME 83.7 FL (78-98); MEAN PLATELET VOLUME 7.9 FL (7.4-10.4); NEUTROPHILS # (AUTO) 7.8 X10'3 (1.8-7.7); NEUTROPHILS % (AUTO) 76.3 % (42-75); PLATELET COUNT 299 X10'3 (140-440); RED BLOOD COUNT 4.73 X10'6 (4.20-5.60); RED CELL DISTRIBUTION WIDTH 16.1 % (11.5-14.5); WHITE BLOOD COUNT 10.2 X10'3 (4.5-11.0)
[2019-09-24 15:56] LABS: ALANINE AMINOTRANSFERASE 17 U/L (12-78); ALBUMIN 3.9 G/DL (3.4-5.0); ALBUMIN/GLOBULIN RATIO 0.9 (1.1-1.5); ALKALINE PHOSPHATASE 93 IU/L (46-116); ANION GAP 9 (8-16); ASPARTATE AMINO TRANSFERASE 14 U/L (10-37); BILIRUBIN,TOTAL 0.5 MG/DL (0.1-1.0); BLOOD UREA NITROGEN 9 MG/DL (7-18); BUN/CREATININE RATIO 8.7 (6.6-38.0); CHLORIDE 97 MMOL/L (99-107); CREATININE 1.03 MG/DL (0.40-0.90); GLUCOSE 114 MG/DL (70-104); POTASSIUM 3.2 MMOL/L (3.5-5.1); SODIUM 136 MMOL/L (135-145); TOTAL CARBON DIOXIDE 29.8 MMOL/L (24-32); TOTAL PROTEIN 8.4 G/DL (6.4-8.2); eGFR 54 ML/MIN
[2019-09-24] MEDS ORDERED: potassium Cl 20 mEq SR tablet PO STA (16:22)
[2019-09-24] MEDS ORDERED: POTASSIUM BICARB 20meq eff tab 20 MEQ TABLET.EFF PO STA (16:51)
--- NOTE | 2019-09-24 16:55 | NUR ---
Unable to obtain IV access, Luz LOONEY aware and ok with PO intake.
[2019-09-24 17:22] LABS: CLARITY,URINE SLIGHTLY CLOUDY (Clear); COLOR,URINE YELLOW (Yellow); GLUCOSE, URINE NEGATIVE (Neg); KETONES,URINE NEGATIVE (Neg); LEUKOCYTE ESTERASE ,URINE NEGATIVE (Neg); NITRITES, URINE NEGATIVE (Neg); OCCULT BLOOD,URINE NEGATIVE (Neg); PROTEIN,URINE NEGATIVE (Neg); UROBILINOGEN,URINE 0.2 E.U/dL (0.2-1.0)
[2019-09-24 17:27] LABS: UA COLLECTION TYPE STRAIGHT CATH
[2019-09-24 17:35] LABS: BACTERIA,URINE FEW /HPF (Neg); RBC,URINE 0-2 /HPF (0-2); SQUAMOUS EPITHELIAL CELL,UR MODERATE /LPF (FEW); WBC,URINE NONE SEEN /HPF (0-4)
[2019-09-24 18:38] VITALS: BP 127/95
--- NOTE | 2019-09-24 20:05 | NUR ---
Road test completed by Mike DHALIWAL. Pt "ok" to safely be discharged home to caregiver. Dr. Luz ruiz.
--- NOTE | 2019-09-24 20:20 | NUR ---
WORKING ON TRANSPORT TO [address] [place] [address] (REFER TO "PT [employer]"); PT OK TO GO HOME POST-DC.
== END 2019-09-24 20:52 | disposition home or self-care (01) ==
LOC: ER 14:21
DX: R41.0 Disorientation, unspecified (principal); M79.604 Pain in right leg; I10 Essential (primary) hypertension; J44.9 Chronic obstructive pulmonary disease, unspecified; E11.9 Type 2 diabetes mellitus without complications; G89.29 Other chronic pain; F41.9 Anxiety disorder, unspecified; F32.9 Major depressive disorder, single episode, unspecified; F10.99 Alcohol use, unspecified with unspecified alcohol-induced disorder; Z86.19 Personal history of other infectious and parasitic diseases; Z56.0 Unemployment, unspecified; Z86.69 Personal history of other diseases of the nervous system and sense organs; Z86.718 Personal history of other venous thrombosis and embolism; Z79.899 Other long term (current) drug therapy; Y90.9 Presence of alcohol in blood, level not specified
CPT/HCPCS: 36415; 71045; 80053; 81001; 82948; 83605; 84145; 85025; 87040; 93005; 99284

== ENCOUNTER 2019-09-24 23:18 | Emergency (ER) | payer MEDICARE, MEDICAID ==
[~2019-09-24] VITALS: Ht 157.5 cm; Wt 95.0 kg
[2019-09-24 23:47] VITALS: BP 138/52
== END 2019-09-24 23:49 | disposition home or self-care (01) ==
LOC: ER 23:19
DX: R41.0 Disorientation, unspecified (principal); R53.83 Other fatigue; I10 Essential (primary) hypertension; J44.9 Chronic obstructive pulmonary disease, unspecified; E11.9 Type 2 diabetes mellitus without complications; G89.29 Other chronic pain; F41.9 Anxiety disorder, unspecified; F32.9 Major depressive disorder, single episode, unspecified; F10.99 Alcohol use, unspecified with unspecified alcohol-induced disorder; Z86.718 Personal history of other venous thrombosis and embolism; Z56.0 Unemployment, unspecified; Z86.69 Personal history of other diseases of the nervous system and sense organs; Z79.899 Other long term (current) drug therapy; Y90.9 Presence of alcohol in blood, level not specified
CPT/HCPCS: 99283

== ENCOUNTER 2023-12-26 11:26 | Emergency (ER) | payer MEDICARE, MEDICAID ==
[~2023-12-26] VITALS: Ht 157.5 cm; Wt 91.4 kg
[~2023-12-26 11:26] MED LIST changes: -LISI-604 PO; +LISI5TAB22 PO; -VENL150C2 PO; +VENL150C5 PO
[2023-12-26 11:32] VITALS: TEMP 98.5
[2023-12-26 13:40] VITALS: RESP 16; O2SAT 94
[2023-12-26 13:44] LABS: BASOPHILS % (AUTO) 0.5 % (0-1); EOSINOPHILS # (AUTO) 0.4 X10'3 (0-0.9); EOSINOPHILS % (AUTO) 4.4 % (0-6); HEMATOCRIT 40.8 % (35.0-45.0); HEMOGLOBIN 13.3 g/dl (12.0-16.0); LYMPHOCYTES # (AUTO) 2.7 X10'3 (1.1-4.8); LYMPHOCYTES % (AUTO) 29.3 % (21-51); MEAN CORPUSCULAR HEMOGLOBIN 28.7 PG (27.0-31.0); MEAN CORPUSCULAR HGB CONC 32.7 g/dL (33.0-36.5); MEAN CORPUSCULAR VOLUME 87.9 FL (78-98); MEAN PLATELET VOLUME 8.6 FL (7.4-10.4); MONOCYTES # (AUTO) 0.7 X10'3 (0-0.9); MONOCYTES % (AUTO) 7.9 % (2-12); NEUTROPHILS # (AUTO) 5.4 X10'3 (1.8-7.7); NEUTROPHILS % (AUTO) 57.9 % (42-75); PLATELET COUNT 259 X10'3 (140-440); RED BLOOD COUNT 4.65 X10'6 (4.20-5.60); RED CELL DISTRIBUTION WIDTH 14.1 % (11.5-14.5); WHITE BLOOD COUNT 9.3 X10'3 (4.5-11.0)
[2023-12-26 13:55] LABS: ALBUMIN 3.6 G/DL (3.4-5.0); ANION GAP 4 (8-16); BLOOD UREA NITROGEN 20 MG/DL (7-18); BUN/CREATININE RATIO 21.3 (10.0-20.0); CALCIUM 8.6 MG/DL (8.5-10.1); CHLORIDE 103 MMOL/L (99-107); CREATININE 0.94 MG/DL (0.40-0.90); GLUCOSE 90 MG/DL (70-104); MAGNESIUM 2.2 MG/DL (1.5-2.4); POTASSIUM 3.7 MMOL/L (3.5-5.1); SODIUM 138 MMOL/L (135-145); TOTAL CARBON DIOXIDE 30.7 MMOL/L (24-32); eCRCL 45 ML/MIN; eGFR 59 ML/MIN
[2023-12-26 14:59] VITALS: BP 135/73; PULSE 78
[2023-12-26] MEDS ORDERED: CEPH-585 PO (15:03)
== END 2023-12-26 15:05 | disposition home or self-care (01) ==
LOC: ER 11:26
DX: I89.0 Lymphedema, not elsewhere classified (principal); J44.9 Chronic obstructive pulmonary disease, unspecified; E11.9 Type 2 diabetes mellitus without complications; I10 Essential (primary) hypertension; Z79.899 Other long term (current) drug therapy
CPT/HCPCS: 36415; 80048; 83605; 83735; 84145; 85025; 87040; 93971; 99284

== ENCOUNTER 2024-09-08 13:43 | Emergency (ER) | payer MEDICARE, MEDICAID ==
[~2024-09-08] VITALS: Ht 157.5 cm; Wt 81.3 kg
[2024-09-08 14:00] VITALS: BP 163/72; PULSE 75; RESP 18; TEMP 99.1; O2SAT 94
== END 2024-09-08 17:39 | disposition left against medical advice (07) ==
LOC: ER 13:44
DX: L08.9 Local infection of the skin and subcutaneous tissue, unspecified (principal); Z53.21 Procedure and treatment not carried out due to patient leaving prior to being seen by health care provider

== ENCOUNTER 2024-09-09 04:04 | Inpatient (IN) | payer MEDICARE, MEDICAID ==
[~2024-09-09] VITALS: Ht 157.5 cm; Wt 91.8 kg
[2024-09-09] MEDS: normal saline 1000ML IV soln IVB ONE (09:31)
[2024-09-09 09:32] LABS: BASOPHILS # (AUTO) 0.1 X10'3 (0-0.2); BASOPHILS % (AUTO) 0.7 % (0-1); EOSINOPHILS # (AUTO) 0.7 X10'3 (0-0.9); EOSINOPHILS % (AUTO) 6.5 % (0-6); HEMATOCRIT 33.1 % (35.0-45.0); HEMOGLOBIN 11.2 g/dl (12.0-16.0); LYMPHOCYTES # (AUTO) 2.1 X10'3 (1.1-4.8); LYMPHOCYTES % (AUTO) 20.4 % (21-51); MEAN CORPUSCULAR HEMOGLOBIN 28.8 PG (27.0-31.0); MEAN CORPUSCULAR HGB CONC 33.9 g/dL (33.0-36.5); MEAN PLATELET VOLUME 7.2 FL (7.4-10.4); MONOCYTES # (AUTO) 0.9 X10'3 (0-0.9); MONOCYTES % (AUTO) 8.7 % (2-12); NEUTROPHILS # (AUTO) 6.7 X10'3 (1.8-7.7); NEUTROPHILS % (AUTO) 63.7 % (42-75); PLATELET COUNT 398 X10'3 (140-440); RED BLOOD COUNT 3.89 X10'6 (4.20-5.60); RED CELL DISTRIBUTION WIDTH 14.5 % (11.5-14.5); WHITE BLOOD COUNT 10.5 X10'3 (4.5-11.0)
[2024-09-09] MEDS: LIDOcaine 1% W/epiNEPHrine 1:100,000 20ml vial IJ ONE (09:43)
[2024-09-09] MEDS: morphine 4 MG/ML inj SYRINge IV ONE (09:44)
[2024-09-09] MEDS: piperacillin/tazo 3.375gm/50ml 50 ML IV ONE (09:44)
[2024-09-09] MEDS: vancomycin/NS 1 GM ADD-VANTAGE 250 ML IV ONE (09:45)
[2024-09-09 10:07] LABS: BLOOD UREA NITROGEN 17 MG/DL (7-18); BUN/CREATININE RATIO 21.3 (10.0-20.0); CHLORIDE 107 MMOL/L (99-107); GLUCOSE 104 MG/DL (70-104); POTASSIUM 3.4 MMOL/L (3.5-5.1); SODIUM 143 MMOL/L (135-145); eCRCL 52 ML/MIN; eGFR 71 ML/MIN
[2024-09-09 10:16] LABS: ALBUMIN 2.7 G/DL (3.4-5.0); ANION GAP 4 (8-16); CALCIUM 8.9 MG/DL (8.5-10.1); TOTAL CARBON DIOXIDE 31.6 MMOL/L (24-32)
[2024-09-09] MEDS ORDERED: potassium Cl 20 mEq SR tablet PO PRN (10:30)
[2024-09-09] MEDS ORDERED: magnesium Cl slow-release 64mg tablet PO PRN (10:30)
[2024-09-09] MEDS ORDERED: acetaminophen 325mg tablet PO PRN (10:30)
[2024-09-09] MEDS ORDERED: magnesium sulf-water 4G/100mL 100 ML IV PRN (10:30)
[2024-09-09] MEDS ORDERED: mag hydrox/Alum hydrox/simeth 30ml oral suspension PO PRN (10:30)
[2024-09-09] MEDS ORDERED: potassium Cl 40MEQ/1/2NS 520ml 520 ML IV PRN (10:30)
[2024-09-09] MEDS ORDERED: magnesium sulf-water 2g/50mL 50 ML IV PRN (10:30)
[2024-09-09] MEDS ORDERED: magnesium hydroxide 30ml (MOM) UD suspension PO PRN (10:30)
[2024-09-09] MEDS: normal saline 1000ml 1,000 ML IV SCH (13:00)
[2024-09-09] MEDS: K and/or MAG REPLACEMENT MC SCH (13:24)
[2024-09-09] MEDS: potassium Cl 20 mEq SR tablet PO PRN (13:31)
[2024-09-09] MEDS: morphine 2 MG/ML inj. syringe IV PRN ×2 (14:38→15:05)
[2024-09-09 18:25] LABS: D-DIMER 0.65 MG/L FEU (0-0.50); INR 1.1 INR; PROTHROMBIN TIME 11.7 SECONDS (9.0-12.0)
[2024-09-09 18:28] LABS: % IRON SATURATION 9 % (11-46); IRON 21 UG/DL (49-151); TOTAL IRON BINDING CAPACITY 229 UG/DL (259-388)
[2024-09-09 19:44] LABS: PRO BRAIN NATRIURETIC PEPTIDE 229 PG/ML (0-125)
[2024-09-09] MEDS: vancomycin/NS 1 GM ADD-VANTAGE 250 ML IV SCH (20:13)
[2024-09-09] MEDS: docusate sod 100mg capsule PO SCH (20:13)
[2024-09-09] MEDS: heparin, porcine 5000 units/ml vial SQ SCH (20:13)
[2024-09-10] VITALS (7 sets, daily range): BP systolic 95–128; BP diastolic 48–54; PULSE 62–82; RESP 16–22; TEMP 98.5–100.4; O2SAT 95–100
[2024-09-10] MEDS: piperacillin/tazo 3.375gm/50ml 50 ML IV SCH (01:56)
[2024-09-10 05:25] LABS: BASOPHILS % (AUTO) 0.2 % (0-1); EOSINOPHILS # (AUTO) 0.7 X10'3 (0-0.9); EOSINOPHILS % (AUTO) 4.9 % (0-6); HEMATOCRIT 31.2 % (35.0-45.0); HEMOGLOBIN 10.5 g/dl (12.0-16.0); LYMPHOCYTES # (AUTO) 0.8 X10'3 (1.1-4.8); LYMPHOCYTES % (AUTO) 5.9 % (21-51); MEAN CORPUSCULAR HEMOGLOBIN 28.6 PG (27.0-31.0); MEAN CORPUSCULAR HGB CONC 33.7 g/dL (33.0-36.5); MEAN CORPUSCULAR VOLUME 84.8 FL (78-98); MEAN PLATELET VOLUME 8.2 FL (7.4-10.4); MONOCYTES # (AUTO) 0.4 X10'3 (0-0.9); NEUTROPHILS # (AUTO) 11.4 X10'3 (1.8-7.7); PLATELET COUNT 377 X10'3 (140-440); RED BLOOD COUNT 3.68 X10'6 (4.20-5.60); RED CELL DISTRIBUTION WIDTH 14.5 % (11.5-14.5); WHITE BLOOD COUNT 13.2 X10'3 (4.5-11.0)
[2024-09-10 05:42] LABS: ALANINE AMINOTRANSFERASE 15 U/L (12-78); ALBUMIN 2.3 G/DL (3.4-5.0); ALBUMIN/GLOBULIN RATIO 0.6 (1.1-1.5); ALKALINE PHOSPHATASE 85 IU/L (46-116); ANION GAP 9 (8-16); ASPARTATE AMINO TRANSFERASE 17 U/L (10-37); BILIRUBIN,TOTAL 0.7 MG/DL (0.1-1.0); BLOOD UREA NITROGEN 13 MG/DL (7-18); BUN/CREATININE RATIO 15.5 (10.0-20.0); CALCIUM 8.1 MG/DL (8.5-10.1); CHLORIDE 105 MMOL/L (99-107); CREATININE 0.84 MG/DL (0.40-0.90); GLUCOSE 111 MG/DL (70-104); MAGNESIUM 1.9 MG/DL (1.5-2.4); POTASSIUM 3.4 MMOL/L (3.5-5.1); SODIUM 139 MMOL/L (135-145); TOTAL CARBON DIOXIDE 25.4 MMOL/L (24-32); TOTAL PROTEIN 6.2 G/DL (6.4-8.2); eCRCL 50 ML/MIN; eGFR 67 ML/MIN
[2024-09-10] MEDS: acetaminophen 325mg tablet PO PRN (07:40)
[2024-09-10] MEDS: furosemide 40mg tablet PO SCH (08:25)
[2024-09-10] MEDS: clopidogrel 75mg tablet PO SCH (08:26)
[2024-09-10] MEDS: lisinopril 5mg tablet PO SCH (08:26)
[2024-09-10] MEDS: venlafaxine XR 75mg capsule (Q24H) PO SCH (08:27)
[2024-09-10] MEDS: atenolol 25mg tablet PO SCH (08:27)
[2024-09-10] MEDS: tolterodine 2mg SR capsule (24hr) PO SCH (10:49)
[2024-09-10] MEDS ORDERED: LORazepam 1 MG tablet PO PRN (11:30)
[2024-09-10] MEDS: thiamine 100mg tablet PO SCH (11:44)
[2024-09-10] MEDS: nicotine 14mg patch - 24hr TD SCH (11:45)
[2024-09-10] MEDS: folic acid 1mg tablet PO SCH (11:45)
[2024-09-10] MEDS: VANCOMYCIN LEVEL IV ONE (20:51)
[2024-09-10] MEDS: nortriptyline 25mg capsule PO SCH (20:51)
[2024-09-11 04:18] LABS: BASOPHILS % (AUTO) 0.1 % (0-1); EOSINOPHILS # (AUTO) 0.7 X10'3 (0-0.9); HEMATOCRIT 29.4 % (35.0-45.0); LYMPHOCYTES # (AUTO) 0.5 X10'3 (1.1-4.8); LYMPHOCYTES % (AUTO) 4.2 % (21-51); MEAN CORPUSCULAR HEMOGLOBIN 28.8 PG (27.0-31.0); MEAN CORPUSCULAR HGB CONC 34.1 g/dL (33.0-36.5); MEAN CORPUSCULAR VOLUME 84.4 FL (78-98); MEAN PLATELET VOLUME 7.6 FL (7.4-10.4); MONOCYTES # (AUTO) 0.5 X10'3 (0-0.9); MONOCYTES % (AUTO) 3.9 % (2-12); NEUTROPHILS # (AUTO) 10.7 X10'3 (1.8-7.7); NEUTROPHILS % (AUTO) 85.8 % (42-75); PLATELET COUNT 324 X10'3 (140-440); RED BLOOD COUNT 3.49 X10'6 (4.20-5.60); RED CELL DISTRIBUTION WIDTH 14.4 % (11.5-14.5); WHITE BLOOD COUNT 12.5 X10'3 (4.5-11.0)
[2024-09-11 04:35] LABS: ALANINE AMINOTRANSFERASE 25 U/L (12-78); ALBUMIN 2.1 G/DL (3.4-5.0); ALBUMIN/GLOBULIN RATIO 0.6 (1.1-1.5); ALKALINE PHOSPHATASE 87 IU/L (46-116); ANION GAP 9 (8-16); ASPARTATE AMINO TRANSFERASE 23 U/L (10-37); BILIRUBIN,TOTAL 0.5 MG/DL (0.1-1.0); BLOOD UREA NITROGEN 10 MG/DL (7-18); BUN/CREATININE RATIO 12.5 (10.0-20.0); CALCIUM 8.1 MG/DL (8.5-10.1); CHLORIDE 106 MMOL/L (99-107); GLUCOSE 115 MG/DL (70-104); MAGNESIUM 1.7 MG/DL (1.5-2.4); POTASSIUM 3.4 MMOL/L (3.5-5.1); SODIUM 139 MMOL/L (135-145); TOTAL CARBON DIOXIDE 24.2 MMOL/L (24-32); TOTAL PROTEIN 5.9 G/DL (6.4-8.2); eCRCL 52 ML/MIN; eGFR 71 ML/MIN
[2024-09-11 06:00] VITALS: BP 97/41; PULSE 81; RESP 18; TEMP 98.8; O2SAT 95
[2024-09-11 10:00] VITALS: BP 102/59; PULSE 79; RESP 20; TEMP 99.4; O2SAT 98
[2024-09-11] MEDS: ondansetron/PF 4mg/2ml inj IV PRN (12:29)
[2024-09-11 18:00] VITALS: BP 137/57; PULSE 79; RESP 20; TEMP 98.5; O2SAT 100
[2024-09-11 20:00] VITALS: RESP 20; O2SAT 100
[2024-09-11 22:00] VITALS: BP 105/47; PULSE 82; RESP 18; TEMP 98.8; O2SAT 97
[2024-09-12 04:56] LABS: BASOPHILS % (AUTO) 0.2 % (0-1); EOSINOPHILS # (AUTO) 0.7 X10'3 (0-0.9); EOSINOPHILS % (AUTO) 5.3 % (0-6); HEMATOCRIT 28.9 % (35.0-45.0); HEMOGLOBIN 9.6 g/dl (12.0-16.0); LYMPHOCYTES # (AUTO) 0.5 X10'3 (1.1-4.8); LYMPHOCYTES % (AUTO) 3.6 % (21-51); MEAN CORPUSCULAR HEMOGLOBIN 28.1 PG (27.0-31.0); MEAN CORPUSCULAR HGB CONC 33.4 g/dL (33.0-36.5); MEAN CORPUSCULAR VOLUME 84.4 FL (78-98); MEAN PLATELET VOLUME 7.5 FL (7.4-10.4); MONOCYTES # (AUTO) 0.3 X10'3 (0-0.9); MONOCYTES % (AUTO) 2.6 % (2-12); NEUTROPHILS # (AUTO) 11.5 X10'3 (1.8-7.7); NEUTROPHILS % (AUTO) 88.3 % (42-75); PLATELET COUNT 327 X10'3 (140-440); RED BLOOD COUNT 3.42 X10'6 (4.20-5.60); RED CELL DISTRIBUTION WIDTH 14.8 % (11.5-14.5); WHITE BLOOD COUNT 13.1 X10'3 (4.5-11.0)
[2024-09-12 05:08] LABS: ALANINE AMINOTRANSFERASE 25 U/L (12-78); ALBUMIN 1.8 G/DL (3.4-5.0); ALBUMIN/GLOBULIN RATIO 0.5 (1.1-1.5); ALKALINE PHOSPHATASE 89 IU/L (46-116); ANION GAP 8 (8-16); ASPARTATE AMINO TRANSFERASE 18 U/L (10-37); BILIRUBIN,TOTAL 0.4 MG/DL (0.1-1.0); BLOOD UREA NITROGEN 11 MG/DL (7-18); BUN/CREATININE RATIO 12.1 (10.0-20.0); CALCIUM 8.2 MG/DL (8.5-10.1); CHLORIDE 106 MMOL/L (99-107); CREATININE 0.91 MG/DL (0.40-0.90); GLUCOSE 127 MG/DL (70-104); MAGNESIUM 1.9 MG/DL (1.5-2.4); POTASSIUM 3.8 MMOL/L (3.5-5.1); SODIUM 140 MMOL/L (135-145); TOTAL CARBON DIOXIDE 26.5 MMOL/L (24-32); TOTAL PROTEIN 5.7 G/DL (6.4-8.2); eCRCL 46 ML/MIN; eGFR 61 ML/MIN
[2024-09-12 06:00] VITALS: BP 106/47; PULSE 76; RESP 20; TEMP 98; O2SAT 96
[2024-09-12 10:00] VITALS: BP 112/62; PULSE 71; RESP 16; TEMP 97.7; O2SAT 98
[2024-09-12] MEDS ORDERED: FOLI1TAB27 PO (13:27)
[2024-09-12] MEDS ORDERED: LACT1CAP26 PO (13:27)
[2024-09-12] MEDS ORDERED: AMOX-580 PO (13:27)
[2024-09-12] MEDS ORDERED: thiamine tablet PO (13:27)
[2024-09-12] MEDS ORDERED: NICO-631 TD (13:27)
== END 2024-09-12 16:10 | disposition home health service (06) | DRG 603 ==
LOC: ER 04:05 → ED HOLD 10:35 → SUR 3N 09-10 00:25
PROVIDERS: ADMIT Family Medicine; ATTEND Family Medicine
PROC: 0Y990ZZ Drainage of Right Lower Extremity, Open Approach (ICD-10-PCS; principal; 2024-09-09)
DX: L03.115 Cellulitis of right lower limb (principal); I10 Essential (primary) hypertension; F32.A Depression, unspecified; F41.9 Anxiety disorder, unspecified; G89.29 Other chronic pain; J44.89 Other specified chronic obstructive pulmonary disease; F17.210 Nicotine dependence, cigarettes, uncomplicated; D64.9 Anemia, unspecified; E87.6 Hypokalemia; Z79.01 Long term (current) use of anticoagulants; Z79.899 Other long term (current) drug therapy; Z86.718 Personal history of other venous thrombosis and embolism
CPT/HCPCS: 10060; 36415; 73721; 80048; 80053; 80202; 82948; 83036; 83540; 83550; 83605; 83735; 83880; 84145; 84466; 85025; 85379; 85610; 87040; 87070; 87077; 87081; 87186; 93306; 93970; 96365; 96375; 97116; 97161; 97530; 99285; A6253; A6258; A6266; A6446; A6449; G0378; J1644; J2270; J2405; J2543; J3370; J7030